=== PATIENT | female | born 1970 ===

== ENCOUNTER 2017-06-20 22:39 | Inpatient (IN) | payer MEDICAID ==
[2017-06-20 23:00] VITALS: BMI 22.8
--- NOTE | 2017-06-20 23:03 | ED PDOC ---
Arrival/HPI - General Time Seen by Provider: 06/20/17 22:45 Historian: Patient - History of Present Illness Narrative History of Present Illness (Text): 06/20/17 23:02 Deena Arredondo is a 46 year old female, whose past medical history includes cerebral aneurysm, who presents to the Emergency department brought in by EMS accompanied by sign complaining of headache. Son reports patient was recently in [facility] neurology ICU following cerebral aneurysmal coiling and discharged. Son states patient had the coil placed following a bleed. Son states tonight patient has been experiencing a frontal headache with some associated weakness and possible right facial droop. Limited HPI and ROS due to patient's acuity of condition. Neurosurgeon: Dr. Park ([facility]) Symptom Onset: Gradual Symptom Course: Unchanged Activities at Onset: Light Context: Home Past Medical History - Provider Review Nursing Documentation Reviewed: Yes - Infectious Disease Hx of Infectious Diseases: None - Tetanus Immunization Tetanus Immunization: Unknown - Psychiatric Hx Depression: No Hx Emotional Abuse: No Hx Physical Abuse: No Hx Substance Use: No - Past Surgical History Past Surgical History: No Previous - Suicidal Assessment Feels Threatened In Home Enviroment: No Family/Social History - Physician Review Nursing Documentation Reviewed: Yes Family/Social History: Unknown Family HX Hx Alcohol Use: No Hx Substance Use: No Hx Substance Use Treatment: No Allergies/Home Meds Allergies/Adverse Reactions: Allergies ampicillin Allergy (Verified 06/20/17 23:08) ANGIOEDEMA shellfish derived Allergy (Verified 06/20/17 23:03) ANAPHYLAXIS Home Medications: Home Meds Medication Instructions Recorded Confirmed Aspirin [Aspirin Chewable] 81 mg PO DAILY 06/20/17 06/20/17 Docusate [Colace] 100 mg PO BID 06/20/17 06/20/17 Ibuprofen [Motrin Ib] 400 mg PO Q4 06/20/17 06/20/17 Nimodipine 30 mg PO Q4 06/20/17 06/20/17 Nitrofurantoin Macrocrystals 100 mg PO Q12 06/20/17 06/20/17 [Macrobid] levETIRAcetam [Keppra] 500 mg PO BID 06/20/17 06/20/17 Review of Systems - Review of Systems Systems not reviewed;Unavailable: Acuity of Condition Constitutional: Other (+weakness). absent: Fevers Musculoskeletal: absent: Back Pain, Neck Pain Neurological: Headache, Facial Droop (+right-sided facial droop), Other (+ weakness) Physical Exam Vital Signs Reviewed: Yes Vital Signs Temp Pulse Resp BP Pulse Ox 06/21/17 02:35 81 15 111/75 99 06/21/17 00:34 81 15 114/65 99 06/20/17 22:53 97.6 F 85 18 111/75 98 Temperature: Afebrile Blood Pressure: Normal Pulse: Regular Respiratory Rate: Normal Appearance: Positive for: Well-Appearing, Non-Toxic, Comfortable Pain Distress: None Mental Status: Positive for: Alert and Oriented X 3 - Systems Exam Head: Present: Atraumatic, Normocephalic Pupils: Present: PERRL Extroacular Muscles: Present: EOMI Conjunctiva: Present: Normal Mouth: Present: Moist Mucous Membranes Neck: Present: Normal Range of Motion Respiratory/Chest: Present: Clear to Auscultation, Good Air Exchange. No: Respiratory Distress, Accessory Muscle Use Cardiovascular: Present: Regular Rate and Rhythm, Normal S1, S2. No: Murmurs Abdomen: Present: Normal Bowel Sounds. No: Tenderness, Distention, Peritoneal Signs Back: Present: Normal Inspection Upper Extremity: Present: Normal Inspection. No: Cyanosis, Edema Lower Extremity: Present: Normal Inspection. No: Edema Neurological: Present: GCS=15, CN II-XII Intact, Speech Normal Skin: Present: Warm, Dry, Normal Color. No: Rashes Psychiatric: Present: Alert, Oriented x 3, Normal Insight, Normal Concentration Medical Decision Making ED Course and Treatment: 06/20/17 23:02 Impression: 46 year old female complaining of headache and weakness tonight. Plan: -- CT Head -- Labs -- Reglan -- Reassess and disposition Progress Notes: 06/21/17 00:06 Reviewed radiology, CT Head shows: Brain: No acute intracranial hemorrhage. Vascular coil at the level of the left internal carotid artery (consistent with patient's history). No significant white matter disease. No edema. Ventricles: No significant ventriculomegaly. Bones: No acute displaced fracture. Sinuses: Unremarkable as visualized. No acute sinusitis. Mastoid air cells: Unremarkable as visualized. No mastoid effusion. IMPRESSION: No acute intracranial hemorrhage, or suspicious mass effect. 06/21/17 01:[address] North, who is aware and agrees with plan. Accepts pt in to hospitalist service. Pt will go to Telemetry observation for TIA. - Lab Interpretations Lab Results: 06/21/17 00:30 06/21/17 00:30 Lab Results 06/21/17 00:30: PT 10.5, INR 0.97, APTT 23.3 L 06/21/17 00:30: Sodium 135, Potassium 4.2, Chloride 97 L, Carbon Dioxide 29, Anion Gap 13, BUN 18, Creatinine 0.9, Est GFR ( Amer) > 60, Est GFR (Non- Af Amer) > 60, Random Glucose 117 H, Calcium 9.0, Total Bilirubin 0.3, AST 23, ALT 48, Alkaline Phosphatase 73, Total Protein 5.8, Albumin 3.4, Globulin 2.4, Albumin/Globulin Ratio 1.4 06/21/17 00:30: WBC 9.1, RBC 2.61 L, Hgb 8.5 L, Hct 25.9 L, MCV 99.2, MCH 32.6, MCHC 32.8, RDW 17.1 H, Plt Count 462 H, MPV 8.2, Gran % 69.4 H, Lymph % (Auto) 20.6 L, [place] % (Auto) 7.3 H, Eos % (Auto) 2.6, Baso % (Auto) 0.1, Gran # 6.32, Lymph # 1.9, [place] # 0.7 H, Eos # 0.2, Baso # 0.01 - RAD Interpretation Radiology Orders: 06/20/17 23:08 HEAD W/O CONTRAST [CT] Stat System Software Programmer: Radiologist - Medication Orders Current Medication Orders: Aspirin (Aspirin Chewable) 81 mg PO DAILY KACEY Cyclobenzaprine HCl (Flexeril) 10 mg PO BID KACEY Docusate Sodium (Colace) 100 mg PO BID [facility] Ibuprofen (Motrin Tab) 400 mg PO Q4 PRN PRN Reason: Headache Last Admin: 06/21/17 05:49 Dose: 400 mg Levetiracetam (Keppra) 500 mg PO BID [facility] Nitrofurantoin Macrocrystals (Macrobid) 100 mg PO Q12 ONE Stop: 06/21/17 10:01 Nimodipine [ Nimodipine] 30 Mg ( Home Med_ 30 mg PO Q4 KACEY Last Admin: 06/21/17 03:50 Dose: Not Given Non-Admin Reason: BP Parameters Not Met Discontinued Medications Metoclopramide HCl (Reglan) 10 mg IVP ONCE ONE Stop: 06/20/17 23:52 Last Admin: 06/21/17 00:42 Dose: 10 mg Oxycodone/Acetaminophen (Percocet 5/325 Mg Tab) 1 tab PO STAT STA Stop: 06/21/17 01:55 Last Admin: 06/21/17 02:14 Dose: 1 tab Re-Assess: JAG Pain Assessment Document 06/21/17 03:14 GC (Rec: 06/21/17 03:51 GC [id number]) Pain Reassessment Is this a pain reassessment? Yes Sleep Is patient sleeping during reassessment? Yes NIHSS Scale ([place]) Time Performed: 23:02 - How Severe is the Stoke Baseline Level of Consciousness: 0=Alert LOC to Questions: 0=Both comments correct LOC to commands: 0=Obeys both correctly Best Gaze: 0=Normal Visual: 0=No visual loss Facial: 0=Normal Motor Arm - Left: 0=No drift Motor Arm - Right: 0=No drift Motor Leg - Left: 0=No drift Motor Leg - Right: 0=No drift Limb Ataxia: 0=Absent Sensory: 0=Normal Best Language: 0=No aphasia Dysarthia: 0=Normal articulation Extinction & Inattention (Neglect): 0=Normal, no object Score: 0 Risk Level: No Stroke Risk rTPA Inclusion/Exclusion - Refusal of Treatment Patient Refused Treatment: No - Inclusion Criteria for Altepase Patient is 18 years or Older: Yes The Clinical Diagnosis of Ischemic Stroke That is Causing a Potentially Disabling Neurological Deficit: No Time of Onset is Well Established to be Less Than 270 Minute Before Treatment Would Begin: No Risk/Benefit Discussed With Patient/Family Member Present: Yes - Exclusion Criteria for Altepase Uncontrolled Hypertension at Time of Treatment (Systolic BP above 185 or Diastolic BP above 110 mmHg): No Less Than 3 Months Had a Recent: Intracranial History of: Brain Aneurysm Active Internal Bleeding: No Known Bleeding Diathesis Including but Not Limited to: Platelets Below 100,000/ mm,PTT Above 40 sec After Heparin Use, Current Use of Oral Anitcoagulant With INR Greater Than 1.7 or PT Greater Than 15 secs: No Evidence of an Intracranial Hemorrhage: No Evidence of Major Acute Infarct With Signs Greater Than 1/3 MCA Territory: No Suspicion of Subarachnoid Hemorrhage on Pretreatment Evaluation Even if CT Head Negative For Hemorrhage: No - Warning to TPA With Conditions Following Conditions Weighed Against Anticipated Benefit: Yes Condition: Increase Risk of Bleed Due to Comorbid Condition - Scribe Statement The provider has reviewed the documentation as recorded by the Scribe Eugenie Walters All medical record entries made by the Scribe were at my direction and personally dictated by me. I have reviewed the chart and agree that the record accurately reflects my personal performance of the history, physical exam, medical decision making, and the department course for this patient. I have also personally directed, reviewed, and agree with the discharge instructions and disposition. Disposition/Present on Arrival - Present on Arrival Any Indicators Present on Arrival: No History of DVT/PE: No History of Uncontrolled Diabetes: No Urinary Catheter: No History Surgical Site Infection Following: None - Disposition Have Diagnosis and Disposition been Completed?: Yes Diagnosis: Transient ischemic attack Disposition: HOSPITALIZED Disposition Time: 01:50 Condition: FAIR
--- NOTE | 2017-06-20 23:46 | CT ---
EXAM: CT Head Without Intravenous Contrast CLINICAL HISTORY: 46 years old, female; Pain; Headache; Prior surgery; Surgery type: Coiled aneurysm repair; Additional info: DAMON TECHNIQUE: Axial computed tomography images of the head/brain without intravenous contrast. All CT scans at this facility use one or more dose reduction techniques, viz.: automated exposure control; ma/kV adjustment per patient size (including targeted exams where dose is matched to indication; i.e. head); or iterative reconstruction technique. COMPARISON: No relevant prior studies available. FINDINGS: Brain: No acute intracranial hemorrhage. Vascular coil at the level of the left internal carotid artery (consistent with patient's history). No significant white matter disease. No edema. Ventricles: No significant ventriculomegaly. Bones: No acute displaced fracture. Sinuses: Unremarkable as visualized. No acute sinusitis. Mastoid air cells: Unremarkable as visualized. No mastoid effusion. IMPRESSION: No acute intracranial hemorrhage, or suspicious mass effect.
[2017-06-21 00:40] LABS: BASO # 0.01 K/mm3 (0.0-2.0); BASO % 0.1 % (0.0-3.0); EOS # 0.2 (0.0-0.7); EOS % 2.6 % (1.5-5.0); GRAN # 6.32 (1.4-6.5); GRAN % 69.4 % (50.0-68.0); HEMATOCRIT 25.9 % (36.0-48.0); LYMPH # 1.9 (1.2-3.4); LYMPH % 20.6 % (22.0-35.0); MEAN CELL VOLUME 99.2 fl (80.0-105.0); MEAN CORPUSCULAR HEMOGLOBIN 32.6 pg (25.0-35.0); MEAN CORPUSCULAR HGB CONC 32.8 g/dl (31.0-37.0); MEAN PLATELET VOLUME 8.2 fl (7.0-11.0); MONO # 0.7 (0.1-0.6); MONO % 7.3 % (1.0-6.0); RED CELL DISTRIBUTION WIDTH 17.1 % (11.5-14.5); WHITE BLOOD COUNT 9.1 10^3/ul (4.5-11.0)
[2017-06-21 00:52] LABS: ALB/GLOB RATIO 1.4 (1.1-1.8); ALKALINE PHOSPHATASE 73 U/L (38-126); ALT/SGPT 48 U/L (7-56); AST/SGOT 23 U/L (14-36); BILIRUBIN,TOTAL 0.3 mg/dL (0.2-1.3); BLOOD UREA NITROGEN 18 mg/dL (7-21); CARBON DIOXIDE 29 mmol/L (21-33); CHLORIDE 97 mmol/L (98-107); GFR AFRICAN-AMERICAN > 60; GLUCOSE,RANDOM 117 mg/dL (70-110); INR 0.97 (0.93-1.08); PARTIAL THROMBOPLASTIN TIME 23.3 Seconds (23.7-30.8); POTASSIUM 4.2 mmol/L (3.6-5.0); SODIUM 135 mmol/L (132-148); TOTAL PROTEIN 5.8 g/dL (5.8-8.3)
[2017-06-21] MEDS ORDERED: Oxycodone/Acetaminophen 5/325 mg Tab PO STA (01:54)
--- NOTE | 2017-06-21 03:13 | CP.PCM.HP ---
<VALERY THRASHER - Last Filed: 06/21/17 03:02> History of Present Illness - History of Present Illness History of Present Illness: Valery Thrasher, PGY1, H&P for Dr. North: CC: right sided facial droop, weakness HPI: 46F with PMH cerebral aneurysm s/p repair, HTN, presents for right sided facial droop and right sided weakness x 2 hrs. It started this afternoon, when pt started complaining of a frontal headache, with associated right sided weakness and right facial droop, noticed as per her son. Resolved 2 hrs later, but wanted to come to ED since pt has a hx of repair of aneurysm. Denies f/c/n/v , anorexia, poor intake. Pt's son states that pt was in ICU at [facility] for 3 weeks for cerebal aneursym repair, with resulting ICU psychosis, which is slowly improving at home, since her discharge this past . In ED, significant lab and imaging include hgb 8.5 (unknown baseline), Ct head neg for acute changes, received reglan and percocet, which helped with her headache. Currently, pt sleepy, denies any weakness, facial droop or headache. PMH: cerebral aneurysm s/p repair- coiled (3 weeks ago at [facility]), HTN, herniated discs, cervical cancer? PSH: cerebral aneurysm repair - 3 weeks ago All: Ampicillin, shellfish FH: Mother, sister and brother (have Lewy body dementia) SH: Denies etoh use. Smokes 1/2 ppd x 25 years, quit few months ago. Denies drug use. Works as a chiropractor assistant. Lives with son, . Son is a speed reading teacher. Present on Admission - Present on Admission Any Indicators Present on Admission: No History of DVT/PE: No History of Uncontrolled Diabetes: No Urinary Catheter: No Decubitus Ulcer Present: No History Surgical Site Infection Following: None Review of Systems - Review of Systems All systems: reviewed and no additional remarkable complaints except Review of Systems: as per hPI Past Patient History - Infectious Disease Hx of Infectious Diseases: None - Tetanus Immunizations Tetanus Immunization: Unknown - Past Social History Smoking Status: Unknown If Ever Smoked - NEUROLOGICAL Other/Comment: Aneurysm with coiling - PSYCHIATRIC Hx Depression: No Hx Emotional Abuse: No Hx Physical Abuse: No Hx Substance Use: No - SURGICAL HISTORY Hx Surgeries: Yes Other/Comment: Coiled Aneurysm - ANESTHESIA Hx Anesthesia: Yes Hx Anesthesia Reactions: No Hx Malignant Hyperthermia: No Meds Allergies/Adverse Reactions: Allergies Allergy/AdvReac Type Severity Reaction Status Date / Time ampicillin Allergy ANGIOEDEMA Verified 06/20/17 23:08 shellfish derived Allergy ANAPHYLAXIS Verified 06/20/17 23:03 Physical Exam - Constitutional Appears: Non-toxic, Older Than Stated Age - Head Exam Head Exam: ATRAUMATIC, NORMOCEPHALIC - Eye Exam Eye Exam: PERRL. absent: Conjunctival injection, Scleral icterus Pupil Exam: PERRL - ENT Exam ENT Exam: Mucous Membranes Moist - Neck Exam Neck exam: Negative for: Lymphadenopathy, Thyromegaly - Respiratory Exam Respiratory Exam: Clear to Auscultation Bilateral. absent: Rales, Rhonchi, Wheezes - Cardiovascular Exam Cardiovascular Exam: RRR, +S1, +S2. absent: Systolic Murmur - GI/Abdominal Exam GI & Abdominal Exam: Normal Bowel Sounds, Soft. absent: Guarding, Tenderness - Extremities Exam Extremities exam: Negative for: calf tenderness, pedal edema - Neurological Exam Neurological exam: CN II-XII Intact, Oriented x3, Reflexes Normal Additional comments: Sensations intact thruout. Motor strength 5/5 UE and LE. - Psychiatric Exam Additional comments: Sleepy - Skin Skin Exam: Dry, Warm Results - Vital Signs Recent Vital Signs: Last Vital Signs Temp 97.6 F 06/20/17 22:53 Pulse 81 06/21/17 02:35 Resp 15 06/21/17 02:35 BP 111/75 06/21/17 02:35 Pulse Ox 99 06/21/17 02:35 - Labs Result Diagrams: 06/21/17 00:30 06/21/17 00:30 Assessment & Plan - Assessment and Plan (Free Text) Assessment: 46F with hx of cerebral aneurysm s/p repair 3 weeks ago, admitted for transient focal weakness and facial droop 2/2 likely TIA, constipation, anemia. Plan: Headache and focal weakness 2/2 likely TIA vs CVA: - Lasted few hours - right sided facial droop, headache, right sided weakness, resolved currently in ED. - Neurology c/s. Neuro checks Q2h - hx of cerebral aneurysm repair at [facility] 3 weeks ago; discharged past , stayed in ICU for 3 weeks, developed IcU psychosis as per son. Constipation: - Pt has had BM since past 3 days, will give Colace 100 mg pO BID. Anemia: - Hgb 8.5. F/u work up of anemia: Fe panel with ferritin, b12, folate, TSH. Hx of HTN: - C/w home med Nimodipine, hold for SBP<110. UTI: - Pt was give macrobid for her uTI at home; she has 1 extra dose remaining to fulfill her treatment. - F/u UA, will give macrobid 1 dose tomorrow AM. Hx of back pain: - c.w home med cyclobenzaprine Discussed with Dr Can Thrasher, PGy1 - Date & Time Date: 06/21/17 Time: 03:13 <Bernadine North - Last Filed: 06/21/17 06:19> Results - Vital Signs Recent Vital Signs: Last Vital Signs Temp 98.0 F 06/21/17 03:23 Pulse 82 06/21/17 03:23 Resp 20 06/21/17 03:23 BP 98/57 L 06/21/17 03:23 Pulse Ox 99 06/21/17 02:35 - Labs Result Diagrams: 06/21/17 00:30 06/21/17 00:30 Attending/Attestation - Attestation I have personally seen and examined this patient.: Yes I have fully participated in the care of the patient.: Yes I have reviewed all pertinent clinical information: Yes Notes (Text): 06/21/17 06:19 Agree with history,physical examination, assessment and plan. Patient was seen when she was in bed # 065-45.
[2017-06-21] MEDS: NIMODIPINE 30 MG PO SCH ×5 (03:50→20:33)
[2017-06-21 07:07] LABS: IRON 77 ug/dL (45-180)
[2017-06-21 12:18] LABS: FOLATE 8.8 ng/mL
--- NOTE | 2017-06-21 16:19 | CP.PCM.CON ---
History of Present Illness - History of Present Illness History of Present Illness: Mrs. Arredondo is a 46-year-old woman who had a ruptured left ICA aneurysm and subsequent subarachnoid hemorrhage 3 weeks ago. She was at a concert when she developed a severe headache and had a seizure. She was taken to [facility] where she had endovascular coiling performed. She then developed delayed vasospasm, which was minimal after subsequent angiogram was done and was started on nimodipine. She presented to the ED with severe headache yesterday and felt that her right side was numb and a little weak. Today, she only complains of subtle numbness of the right side as compared with the right, but no weakness. Her headache is still severe. She is confused and seems to have memory impairment. This was apparently the case for the last 3 weeks since the aneurysm ruptured. She was started on Keppra for seizure prophylaxis. Review of Systems - Review of Systems Systems not reviewed;Unavailable: Altered Mental Status Past Patient History - Infectious Disease Hx of Infectious Diseases: None - Tetanus Immunizations Tetanus Immunization: Unknown - Past Social History Smoking Status: Unknown If Ever Smoked - CARDIAC Hx Cardiac Disorders: Yes Hx Hypertension: Yes - PULMONARY Hx Respiratory Disorders: No - NEUROLOGICAL Other/Comment: Aneurysm with coiling - HEENT Hx HEENT Problems: No - RENAL Hx Chronic Kidney Disease: No - ENDOCRINE/METABOLIC Hx Endocrine Disorders: No - HEMATOLOGICAL/ONCOLOGICAL Hx Blood Disorders: No - INTEGUMENTARY Hx Dermatological Problems: No - MUSCULOSKELETAL/RHEUMATOLOGICAL Hx Musculoskeletal Disorders: No Hx Falls: No - GASTROINTESTINAL Hx Gastrointestinal Disorders: No - GENITOURINARY/GYNECOLOGICAL Hx Genitourinary Disorders: No - PSYCHIATRIC Hx Depression: No Hx Emotional Abuse: No Hx Physical Abuse: No Hx Substance Use: No - SURGICAL HISTORY Hx Surgeries: Yes Other/Comment: Coiled Aneurysm - ANESTHESIA Hx Anesthesia: Yes Hx Anesthesia Reactions: No Hx Malignant Hyperthermia: No Meds Allergies/Adverse Reactions: Allergies Allergy/AdvReac Type Severity Reaction Status Date / Time ampicillin Allergy ANGIOEDEMA Verified 06/20/17 23:08 shellfish derived Allergy ANAPHYLAXIS Verified 06/20/17 23:03 - Medications Medications: Current Medications Aspirin (Aspirin Chewable) [address] [facility] Last Admin: 06/21/17 09:08 Dose: 81 mg Cyclobenzaprine HCl (Flexeril) [address] [facility] Last Admin: 06/21/17 09:08 Dose: 10 mg Docusate Sodium (Colace) [address] [facility] Last Admin: 06/21/17 09:08 Dose: 100 mg Ibuprofen (Motrin Tab) 400 mg PO Q4 PRN PRN Reason: Headache Last Admin: 06/21/17 05:49 Dose: 400 mg Levetiracetam (Keppra) [address] [facility] Last Admin: 06/21/17 09:08 Dose: 500 mg Non-Formulary Medication (Nimodipine [Nimodipine]) [address] [facility] Last Admin: 06/21/17 11:43 Dose: Not Given Physical Exam - Constitutional Appears: Well - Head Exam Head Exam: ATRAUMATIC, NORMAL INSPECTION, NORMOCEPHALIC - Eye Exam Eye Exam: EOMI, Normal appearance, PERRL - ENT Exam ENT Exam: Mucous Membranes Moist, Normal Exam - Neck Exam Neck exam: Positive for: Normal Inspection - Respiratory Exam Respiratory Exam: Clear to Auscultation Bilateral, NORMAL BREATHING PATTERN - Cardiovascular Exam Cardiovascular Exam: REGULAR RHYTHM, +S1, +S2 - GI/Abdominal Exam GI & Abdominal Exam: Normal Bowel Sounds, Soft. absent: Tenderness - Rectal Exam Rectal Exam: Deferred - Extremities Exam Extremities exam: Positive for: normal inspection - Back Exam Back exam: NORMAL INSPECTION - Neurological Exam Neurological exam: Alert, Altered, CN II-XII Intact, Normal Gait - Expanded Neurological Exam Expanded Patient oriented to: person, place, time Cranial nerves: EOM's Intact: Normal, Facial Sensation: Normal Ataxia: No Cerebellar Function: Finger to Nose: Abnormal Right Upper motor neuron: Babinski Sign: Normal Sensory exam: Lower Extremity Light Touch: Abnormal Right, Lower Extremity Temperature: Normal, Upper Extremity Light Touch: Abnormal Right, Upper Extremity Pin Prick: Abnormal Right Neuro motor strength exam: Left Upper Extremity: 4, Right Upper Extremity: 4, Left Lower Extremity: 4, Right Lower Extremity: 4 DTR: Bicep Left: 2+, Bicep Right: 3+, Patellar Left: 2+, Patellar Right: 3+ - Psychiatric Exam Psychiatric exam: Normal Affect, Normal Mood - Skin Skin Exam: Dry, Intact, Normal Color, Warm Results - Vital Signs Recent Vital Signs: Last Vital Signs Temp 98.5 F 06/21/17 11:55 Pulse 90 06/21/17 14:00 Resp 18 06/21/17 11:55 BP 97/55 L 06/21/17 11:55 Pulse Ox 99 06/21/17 06:00 - Labs Result Diagrams: 06/21/17 00:30 06/21/17 00:30 Labs: Laboratory Results - last 24 hr 06/21/17 06/21/17 06/21/17 06:42 06:42 06:42 Iron 77 TIBC 301 % Saturation 26 Ferritin 73.3 Vitamin B12 250 Folate 8.8 TSH 3rd Generation 3.20 - Imaging and Cardiology CT scan - head Status: Image reviewed by me, Report reviewed by me (No overt signs of ischemic change noted. Aneurysm coils in left ICA.) Assessment & Plan (1) Complicated migraine, intractable Assessment and Plan: There may also be associated delayed vasospasm in this patient with the history of subarachnoid hemorrhage. I recommend treating the headache with decadron 10 mg IV once, Depakote 500 mg IV once and magnesium sufate 2 grams IV once. Will obtain MRI of the brain without contrast to evaluate for possible ischemic changes in the setting of vasospasm. PT/OT eval is recommended. Cognitive rehab is recommended. DVT Px, continue nimodipine for total of 21 days since rupture. Status: Acute Priority: High
[2017-06-21] MEDS ORDERED: Magnesium Sulfate 2 GM in Sodium Chloride 0.9% 100 ML IVPB ONE (16:23)
[2017-06-21] MEDS ORDERED: Valproate 500 MG in Sodium Chloride 0.9% 100 ML IVPB ONE (16:24)
[2017-06-21 17:46] LABS: PH,URINE 7.5 (4.7-8.0); URINE BILIRUBIN NEGATIVE (NEGATIVE); URINE BLOOD NEGATIVE (NEGATIVE); URINE GLUCOSE (UA) NEGATIVE (NEGATIVE); URINE KETONE NEGATIVE (NEGATIVE); URINE LEUKOCYTE ESTERASE TRACE Leu/uL (NEGATIVE); URINE PROTEIN NEGATIVE mg/dL (<30 mg/dL); URINE UROBILINOGEN 0.2 E.U./dL (<1 E.U./dL)
[2017-06-21 17:49] LABS: URINE APPEARANCE CLEAR (CLEAR); URINE COLOR YELLOW (YELLOW)
[2017-06-21 17:56] LABS: URINE BACTERIA FEW (NEG); URINE RBC 0 - 2 /hpf (0-2)
[2017-06-22] MEDS: NIMODIPINE 30 MG PO SCH ×5 (00:13→17:18)
[2017-06-22 06:14] LABS: HEMATOCRIT 27.7 % (36.0-48.0); MEAN CELL VOLUME 98.9 fl (80.0-105.0); MEAN CORPUSCULAR HEMOGLOBIN 32.5 pg (25.0-35.0); MEAN CORPUSCULAR HGB CONC 32.9 g/dl (31.0-37.0); MEAN PLATELET VOLUME 8.1 fl (7.0-11.0); RED CELL DISTRIBUTION WIDTH 16.7 % (11.5-14.5); WHITE BLOOD COUNT 5.8 10^3/ul (4.5-11.0)
--- NOTE | 2017-06-22 07:20 | CARD ---
APPROVED REPORT EKG Measurement Heart [id number] OH [id number] <Conclusion> Normal sinus rhythm Normal ECG
--- NOTE | 2017-06-22 09:16 | MRI ---
PROCEDURE: MRI BRAIN WITHOUT CONTRAST HISTORY: rule out ischemic change and vasospasm COMPARISON: Head CT 06/20/2017. TECHNIQUE: Multiplanar, multisequence MR images of the brain were obtained without intravenous contrast enhancement. FINDINGS: HEMORRHAGE: Well-circumscribed dephasing artifact is appreciate the left-sided kashia Parker in the gradient echo series corresponding to dense metallic artifact in this CT exam 06/20/2017 compatible with endovascular therapy for intra aneurysm treatment. No calvarial disruption is appreciated to suggest craniotomy in the past. No definite intracranial hemorrhage appreciated this time. DWI: Multifocal diffusion-weighted abnormalities are scattered bilaterally of the bilateral parietal and frontal lobes, left side greater than right with a possible subacute lacune or infarct at the medial left cerebellum. Left occipital lobe is also affected. There is abnormal low increased short TE signal at the medial right occipital lobe extending cephalad above the level of the straight sinus. Although it abuts the straight sinus is not felt to represent sinus thrombosis in part. Contrast MRI is advised for greater characterization. This is not felt to represent a minimal subdural hematomas and no dephasing is seen in the gradient echo axial series. Diffusion is slightly restricted according to this signal distribution. On further review of the CT exams 06/20/2017, is difficult to exclude trace hemorrhage here. BRAIN PARENCHYMA: No mass effect or edema. Small foci of edema are seen scattered related to the chronic lacune infarctions bilaterally. VENTRICLES: Unremarkable. No hydrocephalus. CRANIUM: Unremarkable. ORBITS: Grossly unremarkable. PARANASAL SINUSES/MASTOIDS: Clear VASCULAR SYSTEM: Skull base flow voids intact. OTHER FINDINGS: None. IMPRESSION: 1. Multifocal acute or subacute lacune infarcts are identified at the bilateral cerebral hemispheres and ina in the medial left cerebellum suggesting probable embolic process from the hard or bilateral carotid artery systems. 2. Trace subdural hematoma is not excluded at the medial left occipital lobe and a thin sliver of abnormal signal identified as discussed above. Trace acute or subacute atypical infarction is the differential diagnosis. 3. Left-sided kashia Parker aneurysm status post endovascular therapy.
[2017-06-22] MEDS: Sodium Chloride 0.9% 1,000 ML IV SCH (11:48)
--- NOTE | 2017-06-22 13:35 | CP.PCM.PN ---
<Ty Singh - Last Filed: 06/22/17 17:01> Subjective - Date & Time of Evaluation Date of Evaluation: 06/22/17 Time of Evaluation: 08:00 - Subjective Subjective: Patient seen and evaluated at bedside. Ty Singh DO PGY1 Internal Medicine Objective - Vital Signs/Intake and Output Vital Signs (last 24 hours): Temp Pulse Resp BP Pulse Ox 97.1 F L 50 L 20 108/70 98 06/22/17 12:00 06/22/17 12:00 06/22/17 12:00 06/22/17 06:00 06/22/17 06:00 - Medications Medications: Current Medications Aspirin (Aspirin Chewable) 81 mg PO DAILY [facility] Last Admin: 06/22/17 09:34 Dose: 81 mg Clopidogrel Bisulfate (Plavix) 75 mg PO DAILY [facility] Last Admin: 06/22/17 11:47 Dose: 75 mg Cyclobenzaprine HCl (Flexeril) 10 mg PO BID [facility] Last Admin: 06/22/17 09:35 Dose: 10 mg Docusate Sodium (Colace) 100 mg PO BID [facility] Last Admin: 06/22/17 09:34 Dose: 100 mg Home Med (Home Med) 1 unit PO Q4 [facility] Last Admin: 06/22/17 09:31 Dose: Not Given Sodium Chloride (Sodium Chloride 0.9%) 1,000 mls @ 100 mls/hr IV .Q10H [facility] Last Admin: 06/22/17 11:48 Dose: 100 mls/hr Ibuprofen (Motrin Tab) 400 mg PO Q4 PRN PRN Reason: Headache Last Admin: 06/21/17 05:49 Dose: 400 mg Levetiracetam (Keppra) 500 mg PO BID [facility] Last Admin: 06/22/17 09:35 Dose: 500 mg - Labs Labs: PT 10.5 Seconds (9.9-11.8) 06/21/17 00:30 INR 0.97 (0.93-1.08) 06/21/17 00:30 APTT 23.3 Seconds (23.7-30.8) L 06/21/17 00:30 - Constitutional Appears: Confused - Head Exam Head Exam: NORMAL INSPECTION, NORMOCEPHALIC - Eye Exam Eye Exam: EOMI, Normal appearance, PERRL - Neck Exam Neck Exam: absent: Lymphadenopathy - Respiratory Exam Respiratory Exam: Clear to Ausculation Bilateral, NORMAL BREATHING PATTERN. absent: Rales, Rhonchi, Wheezes - Cardiovascular Exam Cardiovascular Exam: REGULAR RHYTHM, +S1, +S2. absent: Murmur - GI/Abdominal Exam GI & Abdominal Exam: Normal Bowel Sounds - Extremities Exam Additional comments: lower extremity strength 5/5 biltaerally upper extremity strength 5/5 bilaterally - Neurological Exam Neurological Exam: absent: Oriented x3 Additional comments: Patient did not know the year, day, or where she was. She recalled her name with some help. - Psychiatric Exam Psychiatric exam: Depressed Additional comments: Patient was crying and asking for her son Assessment and Plan - Assessment and Plan (Free Text) Assessment: 46F with PMH cerebral aneurysm s/p repair, HTN, presented for right sided facial droop and right sided weakness x 2 hrs. Currently no droop or weaknes. Patient is teary eyed and appears so be sad. Plan: 1. 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 -PT evaluation ordered 2. Confusion/ AMS : Embolic strok vs cerberal vasospasm vs proceduarl related emboli - MRI Brain performed and obtained - Per Neurology MRI of the brain showed multiple ischemic strokes involving both hemispheres as well as the posterior circulation. - full stroke work-up performed and continuous telemetry - echocardiogram/bubble study ordered - MRA of the head/neck ordered , continuous telemetry, - started on both aspirin and plavix. - psychiatry consulted - NS @100 3. Anemia: - Continue to monitor Hgb, currently 9.1 4. UTI: - MAcrobid treatment completed - continue to monitor 5. Hx of back pain: - c.w home med cyclobenzaprine 6. Constipation -continue colace 7. DVT prophylacxis -SCD <Sara Oconnell - Last Filed: 06/22/17 17:25> Objective - Vital Signs/Intake and Output Vital Signs (last 24 hours): Temp Pulse Resp BP Pulse Ox 97.1 F L 50 L 20 108/70 98 06/22/17 12:00 06/22/17 12:00 06/22/17 12:00 06/22/17 06:00 06/22/17 06:00 - Medications Medications: Current Medications Aspirin (Aspirin Chewable) 81 mg PO DAILY [facility] Last Admin: 06/22/17 09:34 Dose: 81 mg Clopidogrel Bisulfate (Plavix) 75 mg PO DAILY [facility] Last Admin: 06/22/17 11:47 Dose: 75 mg Cyclobenzaprine HCl (Flexeril) 10 mg PO BID [facility] Last Admin: 06/22/17 09:35 Dose: 10 mg Docusate Sodium (Colace) 100 mg PO BID [facility] Last Admin: 06/22/17 09:34 Dose: 100 mg Home Med (Home Med) 1 unit PO Q4 [facility] Last Admin: 06/22/17 14:08 Dose: Not Given Sodium Chloride (Sodium Chloride 0.9%) 1,000 mls @ 100 mls/hr IV .Q10H [facility] Last Admin: 06/22/17 11:48 Dose: 100 mls/hr Ibuprofen (Motrin Tab) 400 mg PO Q4 PRN PRN Reason: Headache Last Admin: 06/21/17 05:49 Dose: 400 mg Levetiracetam (Keppra) 500 mg PO BID [facility] Last Admin: 06/22/17 09:35 Dose: 500 mg - Labs Labs: PT 10.5 Seconds (9.9-11.8) 06/21/17 00:30 INR 0.97 (0.93-1.08) 06/21/17 00:30 APTT 23.3 Seconds (23.7-30.8) L 06/21/17 00:30 Attending/Attestation - Attestation I have personally seen and examined this patient.: Yes I have fully participated in the care of the patient.: Yes I have reviewed all pertinent clinical information, including history, physical exam and plan: Yes Notes (Text): 06/22/17 17:17 46 year old female with past medical history of cerebral aneursym s/p repair who presented with right sided weakness and facial droop; also had altered mental status / delirium since her recent hospitalization as per son. She has completed her treatment for UTI. CT and MRI brain were reviewed. Case was discussed with neurology who recommended aspirin and plavix and further studies with MRA and bubble study / echocardiogram as well as PT evaluation. Her headache has improved. She is still confused with labile mood (tearful/ depressed) on examination. Psychiatry evaluation is requested. Anemia workup was ordered for anemia. Recommended outpatient workup. Sara Oconnell MD Hospitalist.
--- NOTE | 2017-06-22 13:40 | CP.PCM.PN ---
Subjective - Date & Time of Evaluation Date of Evaluation: 06/22/17 Time of Evaluation: 10:00 - Subjective Subjective: Mrs. Arredondo was seen and examined today at bedside. She was found in NAD. Still seemingly confused. There were no acute events overnight. Objective - Vital Signs/Intake and Output Vital Signs (last 24 hours): Temp Pulse Resp BP Pulse Ox 97.1 F L 50 L 20 108/70 98 06/22/17 12:00 06/22/17 12:00 06/22/17 12:00 06/22/17 06:00 06/22/17 06:00 - Medications Medications: Current Medications Aspirin (Aspirin Chewable) 81 mg PO DAILY [facility] Last Admin: 06/22/17 09:34 Dose: 81 mg Clopidogrel Bisulfate (Plavix) 75 mg PO DAILY [facility] Last Admin: 06/22/17 11:47 Dose: 75 mg Cyclobenzaprine HCl (Flexeril) 10 mg PO BID [facility] Last Admin: 06/22/17 09:35 Dose: 10 mg Docusate Sodium (Colace) 100 mg PO BID [facility] Last Admin: 06/22/17 09:34 Dose: 100 mg Home Med (Home Med) 1 unit PO Q4 [facility] Last Admin: 06/22/17 09:31 Dose: Not Given Sodium Chloride (Sodium Chloride 0.9%) 1,000 mls @ 100 mls/hr IV .Q10H [facility] Last Admin: 06/22/17 11:48 Dose: 100 mls/hr Ibuprofen (Motrin Tab) 400 mg PO Q4 PRN PRN Reason: Headache Last Admin: 06/21/17 05:49 Dose: 400 mg Levetiracetam (Keppra) 500 mg PO BID [facility] Last Admin: 06/22/17 09:35 Dose: 500 mg - Labs Labs: PT 10.5 Seconds (9.9-11.8) 06/21/17 00:30 INR 0.97 (0.93-1.08) 06/21/17 00:30 APTT 23.3 Seconds (23.7-30.8) L 06/21/17 00:30 - Neurological Exam Neurological Exam: Altered, Awake, CN II-XII Intact Neuro motor strength exam: Left Upper Extremity: 4, Right Upper Extremity: 4, Left Lower Extremity: 4, Right Lower Extremity: 4 Additional comments: Neurologically unchanged compared with previous examination. Assessment and Plan - Assessment and Plan (Free Text) Assessment: MRI of the brain showed multiple ischemic strokes involving both hemispheres as well as the posterior circulation. The differential includes embolic stroke, cerebral vasospasm, or procedural related emboli (dislodging of plaques during interventional procedure). Previously, the patient was thought to have ICU psychosis and this was presumed to be the cause of her encephalopathy. However , after seeing the multiple ischemic strokes, especially the one involving the left temporal lobe, it is clear that she is encephalopathic due to the vascular lesions and cortical injuries. She will need a full stroke work-up with echocardiogram/bubble study, MRA of the head/neck, continuous telemetry, and should be started on both aspirin and plavix. She is having ongoing strokes, and the previous aneurysm is secured, therefor I am not concerned about the risk of bleeding at this time. We should aim to prevent further ischemic strokes for now. She will require PT/OT and cognitive therapy.
--- NOTE | 2017-06-22 16:18 | MRI ---
PROCEDURE: MR Angiography of the neck without contrast HISTORY: ischemic stroke COMPARISON: None available. TECHNIQUE: 3D [id number] angiography of the neck was performed. Rotating maximum intensity projection images of the cervical carotid and vertebral arteries were generated. The origins of the common carotid arteries were not visualized, which is a limitation inherent to the non-contrast time of flight technique. FINDINGS: RIGHT CAROTID ARTERIES: Common Carotid Artery: Normal. Carotid Bifurcation: Normal. Internal Carotid Artery:Normal. External Carotid Artery (proximal branches): Normal. LEFT CAROTID ARTERIES: Common Carotid Artery: Normal. Carotid Bifurcation: Normal. Internal Carotid Artery:Normal. External Carotid Artery (proximal branches): Normal. VERTEBRAL ARTERIES: Right Vertebral Artery: Normal. Left Vertebral Artery: Normal. OTHER FINDINGS: None. IMPRESSION: Normal MR Angiography of the neck.
--- NOTE | 2017-06-22 16:27 | MRI ---
PROCEDURE: Magnetic Resonance Angiography Brain HISTORY: ischemic stroke COMPARISON: None available. TECHNIQUE: 3D time of flight MR angiography of the intracranial arteries was performed. Rotating maximum intensity projection images were generated. FINDINGS: INTERNAL CEREBRAL ARTERIES: Unremarkable. The skull base, petrous, cavernous and supraclinoid segments are bilaterally widely patient. ANTERIOR CEREBRAL ARTERIES: The bilateral A1 A2 anterior cerebral artery segments are patent but appear somewhat at the lower limits of normal size without definitive segmental narrowing appreciable. MIDDLE CEREBRAL ARTERIES: M1 and M2 segments are symmetric bilaterally but also appear at the lower limits normal size without cysts suspicious narrowing associated segmentally. POSTERIOR CIRCULATION: Basilar Artery: Patent but at the lower limits normal size. Distal Vertebral Arteries: Patent but at the lower limits normal size. Posterior Cerebral Arteries: Patent but small left delete [employer] with origin right [employer] present. Posterior Inferior Cerebellar Arteries: Patent bilateral. ANEURYSM/ VASCULAR MALFORMATIONS: None. OTHER FINDINGS: None. 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 Congenital appearance is favored over spasm. No prior comparison available. .
[2017-06-23] MEDS: Sodium Chloride 0.9% 1,000 ML IV SCH ×3 (01:35→20:01)
[2017-06-23] MEDS: NIMODIPINE 30 MG PO SCH ×6 (01:38→20:40)
[2017-06-23 07:20] LABS: BLOOD UREA NITROGEN 29 mg/dL (7-21); CALCIUM 8.6 mg/dL (8.4-10.5); CARBON DIOXIDE 25 mmol/L (21-33); CHLORIDE 106 mmol/L (98-107); CHOLESTEROL 197 mg/dL (130-200); GFR AFRICAN-AMERICAN > 60; GLUCOSE,RANDOM 98 mg/dL (70-110); POTASSIUM 4.3 mmol/L (3.6-5.0); SODIUM 139 mmol/L (132-148)
[2017-06-23 07:22] LABS: BASO # 0.02 K/mm3 (0.0-2.0); BASO % 0.3 % (0.0-3.0); EOS # 0.2 (0.0-0.7); EOS % 2.3 % (1.5-5.0); GRAN # 3.86 (1.4-6.5); GRAN % 48.4 % (50.0-68.0); HEMATOCRIT 25.7 % (36.0-48.0); LYMPH # 3.2 (1.2-3.4); LYMPH % 40.8 % (22.0-35.0); MEAN CELL VOLUME 101.6 fl (80.0-105.0); MEAN CORPUSCULAR HGB CONC 31.5 g/dl (31.0-37.0); MONO # 0.7 (0.1-0.6); MONO % 8.2 % (1.0-6.0); RED CELL DISTRIBUTION WIDTH 17.8 % (11.5-14.5)
--- NOTE | 2017-06-23 12:31 | CP.PCM.PN ---
<Ty Singh - Last Filed: 06/23/17 20:11> Subjective - Date & Time of Evaluation Date of Evaluation: 06/23/17 Time of Evaluation: 07:20 - Subjective Subjective: Medicine Progress Note for Hospitalist Patient was seen and evaluated bedside, with her son present. Patient stated her headache is less than yesterday. She was also more alert than the previous day and not sobbing. Objective - Vital Signs/Intake and Output Vital Signs (last 24 hours): Temp Pulse Resp BP Pulse Ox 98 F 90 20 98/58 L 100 06/23/17 12:00 06/23/17 12:00 06/23/17 12:00 06/23/17 12:00 06/23/17 06:00 Intake and Output: 06/23/17 06/23/17 06:59 18:59 Intake Total 1440 Output Total 500 Balance 940 - Medications Medications: Current Medications Aspirin (Aspirin Chewable) 81 mg PO DAILY [facility] Last Admin: 06/23/17 09:53 Dose: 81 mg Clopidogrel Bisulfate (Plavix) 75 mg PO DAILY [facility] Last Admin: 06/23/17 09:53 Dose: 75 mg Cyclobenzaprine HCl (Flexeril) 10 mg PO BID [facility] Last Admin: 06/23/17 09:53 Dose: 10 mg Docusate Sodium (Colace) 100 mg PO BID [facility] Last Admin: 06/23/17 09:53 Dose: 100 mg Home Med (Home Med) 1 unit PO Q4 [facility] Last Admin: 06/23/17 08:35 Dose: Not Given Sodium Chloride (Sodium Chloride 0.9%) 1,000 mls @ 100 mls/hr IV .Q10H [facility] Last Admin: 06/23/17 08:24 Dose: 100 mls/hr Ibuprofen (Motrin Tab) 400 mg PO Q4 PRN PRN Reason: Headache Last Admin: 06/22/17 20:03 Dose: 400 mg Levetiracetam (Keppra) 500 mg PO BID [facility] Last Admin: 06/23/17 09:54 Dose: 500 mg - Labs Labs: 06/23/17 05:15 06/23/17 05:15 PT 10.5 Seconds (9.9-11.8) 06/21/17 00:30 INR 0.97 (0.93-1.08) 06/21/17 00:30 APTT 23.3 Seconds (23.7-30.8) L 06/21/17 00:30 - Constitutional Appears: No Acute Distress - Head Exam Head Exam: ATRAUMATIC, NORMAL INSPECTION, NORMOCEPHALIC - Eye Exam Eye Exam: Normal appearance - Respiratory Exam Respiratory Exam: Clear to Ausculation Bilateral, NORMAL BREATHING PATTERN. absent: Rales, Stridor - Cardiovascular Exam Cardiovascular Exam: REGULAR RHYTHM, +S1, +S2. absent: RRR, Rubs, Murmur - GI/Abdominal Exam GI & Abdominal Exam: Normal Bowel Sounds - Extremities Exam Additional comments: Upper and lower extremity strength 5/5 - Neurological Exam Neurological Exam: Alert, Awake, Oriented x3 Assessment and Plan - Assessment and Plan (Free Text) Assessment: 46F with PMH cerebral aneurysm s/p repair, HTN, presented for left sided facial droop and right sided weakness x 2 hrs. Currently the patient does not have left facial droop or right arm weakness. Patient is being worked up for the confusion and AMS. Plan: 1. Headache and focal weakness 2/2 likely TIA vs CVA: - currently resolved - Neurology consulted Neuro checks Q2h - PT evaluation ordered 2. Confusion/ AMS : Embolic stroke vs cerebral vasospasm vs procedural related emboli - MRI Brain performed and obtained - Per Neurology MRI of the brain showed multiple ischemic strokes involving both hemispheres as well as the posterior circulation. 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 - full stroke work-up being done - echocardiography with bubble study did not reveal any shunts. 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 - psychiatry consulted 3. Anemia- macrocytic likely due to B12 deficiency - Hgb is 8.1, iron studies were normal - B12 level is on the lower end of normal - Start B12 - Continue to monitor B12 levels and Hgb 4. HLD - LDL level of 105 - started on Lipitor 10 PO 5. UTI: resolved - Macrobid treatment completed 6. Hx of back pain: - continue home med cyclobenzaprine 7.Constipation - continue Colace 8. DVT prophylaxis -SCD <Sara Oconnell - Last Filed: 06/24/17 06:40> Objective - Vital Signs/Intake and Output Vital Signs (last 24 hours): Temp Pulse Resp BP Pulse Ox 97.7 F 86 20 129/79 98 06/24/17 06:00 06/24/17 06:00 06/24/17 06:00 06/24/17 06:00 06/24/17 06:00 Intake and Output: 06/23/17 06/24/17 18:59 06:59 Intake Total 720 Output Total 1200 Balance -480 - Medications Medications: Current Medications Aspirin (Aspirin Chewable) 81 mg PO DAILY [facility] Last Admin: 06/23/17 09:53 Dose: 81 mg Atorvastatin Calcium (Lipitor) 10 mg PO DIN [facility] Last Admin: 06/23/17 17:18 Dose: 10 mg Clopidogrel Bisulfate (Plavix) 75 mg PO DAILY [facility] Last Admin: 06/23/17 09:53 Dose: 75 mg Cyclobenzaprine HCl (Flexeril) 10 mg PO BID [facility] Last Admin: 06/23/17 17:18 Dose: 10 mg Docusate Sodium (Colace) 100 mg PO BID [facility] Last Admin: 06/23/17 17:18 Dose: 100 mg Home Med (Home Med) 1 unit PO Q4 [facility] Last Admin: 06/24/17 04:30 Dose: Not Given Sodium Chloride (Sodium Chloride 0.9%) 1,000 mls @ 100 mls/hr IV .Q10H [facility] Last Admin: 06/24/17 05:35 Dose: 100 mls/hr Ibuprofen (Motrin Tab) 400 mg PO Q4 PRN PRN Reason: Headache Last Admin: 06/22/17 20:03 Dose: 400 mg Levetiracetam (Keppra) 500 mg PO BID [facility] Last Admin: 06/23/17 17:18 Dose: 500 mg - Labs Labs: 06/23/17 05:15 06/23/17 05:15 PT 10.5 Seconds (9.9-11.8) 06/21/17 00:30 INR 0.97 (0.93-1.08) 06/21/17 00:30 APTT 23.3 Seconds (23.7-30.8) L 06/21/17 00:30 Attending/Attestation - Attestation I have personally seen and examined this patient.: Yes I have fully participated in the care of the patient.: Yes I have reviewed all pertinent clinical information, including history, physical exam and plan: Yes Notes (Text): 06/23/17 46 year old female with past medical history of cerebral aneursym s/p repair who presented with right sided weakness and facial droop; also had altered mental status / delirium since her recent hospitalization as per son. She has recently completed her treatment for UTI. CT and MRI brain were reviewed. Neurology is following the patient. She is on aspirin, plavix and statin. Echocardiogram /bubble study was done today; will follow up with results. PT evaluation was appreciated. Her headache has improved. Her labile mood has improved as well. Her mental status is now at baseline. Psychiatry evaluation was appreciated. Anemia workup was reviewed. Will continue to monitor closely. Son is at bedside and questions were answered. Sara Oconnell MD Hospitalist.
[2017-06-23] MEDS ORDERED: Gadodiamide 287 MG/ML VIAL (15ML) IV ONE (16:34)
--- NOTE | 2017-06-23 18:25 | CON ---
HISTORY OF PRESENT ILLNESS: Shortly, the patient is a 46-year-old female with multiple medical issues including cerebral aneurysm. The patient was admitted for evaluation of headache and the patient was recently discharged from [facility] Neurology ICU following cerebral aneurysm coiling and discharge. The patient was admitted on the second floor to this facility and psych consult was called for evaluation of altered mental status as well as some visual hallucinations. The patient was seen and examined with neurology team, resident was next to the patient bed. The patient presented to be alert. The patient knows that she is in the hospital. The patient knows that the circumstances of her admission to the medical side, but appears to be confused. Collateral information was obtained from the patient's son who is next to the patient. The patient's son is Jean-Paul Sequeira. As per the son, 2 days ago, the patient was experiencing visual hallucinations, presenting the patient was talking to her parents. The patient also lost touch with the reality and had impression that she is still a child, and she has her parents next to her. Last episode was yesterday. Today, the patient is more oriented, alert, and did not have any hallucinations so far. The patient is improving as per son, but still is not at her baseline yet. The patient does not have history of mental illness, does not have history of psychosis, denies history of suicidal attempts, denied previous episodes of visual hallucinations. The patient reported that she feels better. The patient denied feeling depressed, denied thoughts of killing herself or others, denied any hallucinations at present moment. The patient knows that she is in the hospital, but she was not aware of the date. The patient does not have substance abuse history and denied using alcohol or smoking cigarettes. PHYSICAL EXAMINATION VITAL SIGNS: Reviewed. Temperature 98, pulse is 92 to 101, blood pressure 98/58, respirations 20. MEDICATIONS: Reviewed. Aspirin, Lipitor, Plavix, Flexeril, Colace, Motrin, Keppra was started 500 mg twice a day, Seroquel will be given only for agitation or hallucinations at the nighttime. Risk, benefits and alteratives explained to the patient and her son. The patient also is on sodium chloride. 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 The patient also had neck MRI and head MRA. Notes from neurology exam reviewed. MENTAL STATUS EXAMINATION: The patient appears to be alert, oriented to place, self as well but not time. Intermittent eye contact. Speech was under productive. Mood described as "I am not depressed."Affect was constricted. The patient was able to smile couple of times during the interview. Thought process seems to be concrete at the present moment. Thought content: The patient denied any hallucinations at present moment, but has 2 days off visual hallucinations that she s with her parents and lost touch with reality. As per son, the patient is closer to the baseline, but still appears to be confused. The patient denied thoughts of harming herself or others. Denies intention or plan. Insight and judgement are fair. Impulses are well controlled. IMPRESSION: Visual hallucinations as well confusions is just related to the neurologic deficits as well delirium stage. The patient denies feeling depressed. Denied anxiety symptoms as well. The patent has multiple medical issues including multiple ischemic strokes involving both hemispheres and . Considering the fact as per collateral information, the patient improving very fast. At this rate, I will not implement any psychotropic medication at present moment,and we will follow up on this patient in order to make sure that the patient is improving and if needed small dose of Seroquel could be given, 12.5 mg, for severe agitation or visual hallucinations which would interfere with the patient safety. Risks, benefits, and alternatives discussed with the patient but as of now, the patient does not have agitated episodes. The patient most likely needs physical therapy and occupational therapy. Collaterals were obtained from the patient's son. Discussed with the medical team. This designer writer will follow up the patient and advise accordingly. Thank you very much for letting us participate in care of your patient. Should they have any questions, give me a call back. Karon Orourke MD
--- NOTE | 2017-06-23 19:15 | CP.PCM.PN ---
<Fran Galvan - Last Filed: 06/23/17 18:59> Subjective - Date & Time of Evaluation Date of Evaluation: 06/23/17 Time of Evaluation: 09:00 - Subjective Subjective: Neurology progress note for Dr. Galloway service Patient seen and examined at bedside. Through front end specialist, patient reports some residual confusion, intermittent, but generally feels improved. Seen ambulating with PT, without overt difficulty or gross asymmetrical gait dysfxn. As per son at bedside, patient's mentation greatly improved over level at admission, confusion that persists typically presents as disorientation to time and occasional flashbacks to prior times (i.e. prior conversations with parents, who are both decreased now). Patient denies any acute complaints, including focal weakness, headache, vision changes, nausea/emesis, paresthesia, fevers/chills, cough, chest pain, shortness of breath at rest, diarrhea, or dysuria/hematuria. Objective - Vital Signs/Intake and Output Vital Signs (last 24 hours): Temp Pulse Resp BP Pulse Ox 98.2 F 105 H 20 97/59 L 100 06/23/17 18:00 06/23/17 18:00 06/23/17 18:00 06/23/17 18:00 06/23/17 06:00 Intake and Output: 06/23/17 06/23/17 06:59 18:59 Intake Total 1440 720 Output Total 500 1200 Balance 940 -480 - Medications Medications: Current Medications Aspirin (Aspirin Chewable) 81 mg PO DAILY [facility] Last Admin: 06/23/17 09:53 Dose: 81 mg Atorvastatin Calcium (Lipitor) 10 mg PO DIN [facility] Last Admin: 06/23/17 17:18 Dose: 10 mg Clopidogrel Bisulfate (Plavix) 75 mg PO DAILY [facility] Last Admin: 06/23/17 09:53 Dose: 75 mg Cyclobenzaprine HCl (Flexeril) 10 mg PO BID [facility] Last Admin: 06/23/17 17:18 Dose: 10 mg Docusate Sodium (Colace) 100 mg PO BID [facility] Last Admin: 06/23/17 17:18 Dose: 100 mg Home Med (Home Med) 1 unit PO Q4 [facility] Last Admin: 06/23/17 17:19 Dose: Not Given Sodium Chloride (Sodium Chloride 0.9%) 1,000 mls @ 100 mls/hr IV .Q10H [facility] Last Admin: 06/23/17 08:24 Dose: 100 mls/hr Ibuprofen (Motrin Tab) 400 mg PO Q4 PRN PRN Reason: Headache Last Admin: 06/22/17 20:03 Dose: 400 mg Levetiracetam (Keppra) 500 mg PO BID [facility] Last Admin: 06/23/17 17:18 Dose: 500 mg - Labs Labs: 06/23/17 05:15 06/23/17 05:15 PT 10.5 Seconds (9.9-11.8) 06/21/17 00:30 INR 0.97 (0.93-1.08) 06/21/17 00:30 APTT 23.3 Seconds (23.7-30.8) L 06/21/17 00:30 - Constitutional Appears: Well, Non-toxic, No Acute Distress - Head Exam Head Exam: ATRAUMATIC, NORMAL INSPECTION, NORMOCEPHALIC - Eye Exam Eye Exam: EOMI, Normal appearance, PERRL. absent: Conjunctival injection, Scleral icterus Pupil Exam: NORMAL ACCOMODATION, PERRL. absent: Fixed, Irregular, Unequal - Neck Exam Neck Exam: Full ROM, Normal Inspection. absent: Lymphadenopathy, Tenderness, Thyromegaly - Respiratory Exam Respiratory Exam: Clear to Ausculation Bilateral, NORMAL BREATHING PATTERN. absent: Accessory Muscle Use, Chest Wall Tenderness, Decreased Breath Sounds, Rales, Rhonchi, Wheezes - Cardiovascular Exam Cardiovascular Exam: REGULAR RHYTHM, RRR, +S2. absent: Bradycardia, Tachycardia , Irregular Rhythm, JVD, +S4 - GI/Abdominal Exam GI & Abdominal Exam: Soft, Normal Bowel Sounds. absent: Distended, Firm, Rigid , Tenderness, Diminished Bowel Sounds, Hyperactive Bowel Sounds, Hypoactive Bowel Sounds, Pulsatile Mass - Extremities Exam Extremities Exam: Full ROM, Normal Capillary Refill, Normal Inspection. absent : Joint Swelling, Pedal Edema, Tenderness - Neurological Exam Neurological Exam: Alert, Awake, Normal Gait (as seen walking with PT), Oriented x3 (oriented to self, location, time) Neuro motor strength exam: Left Upper Extremity: 4, Right Upper Extremity: 4, Left Lower Extremity: 4, Right Lower Extremity: 4 Additional comments: mild R pronator drift with eyes closed no ataxia no tremors at rest, no intention tremors - Psychiatric Exam Psychiatric exam: Normal Affect, Normal Mood - Skin Skin Exam: Dry, Intact, Normal Color, Warm Assessment and Plan - Assessment and Plan (Free Text) Assessment: This is a 46 yo F with PMH of HTN, herniated discs, and possible cervical cancer with 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 She is now being worked up for possible embolic disease vs procedural-related emboli in the setting of multiple ischemic strokes on MRI. Her reported ICU psychosis is more likely encephalopathy 2/2 multiple ischemic strokes, including the left temporal lobe. Plan: 1) Recommend cardio consult for possible embolic disease from carotids vs cardiac 2/2 PFO 2) Echo with bubble study ordered to rule out PFO and embolisms from cardiac site 3) Hypercoagulability workup ordered, f/u 4) Continue ASA/Plavix/Lipitor for stroke prevention 5) Continue Keppra for seizure ppx 6) Maintain SBP >= 120, avoid hypotensive episodes 7) Encourage patient to lay flat 8) PT/OT and cognitive therapy Patient seen, reviewed, and discussed with attending, Dr. Kerwin Galloway. <Gonzalo Galloway - Last Filed: 06/23/17 21:35> Objective - Vital Signs/Intake and Output Vital Signs (last 24 hours): Temp Pulse Resp BP Pulse Ox 98.2 F 105 H 20 97/59 L 100 06/23/17 18:00 06/23/17 18:00 06/23/17 18:00 06/23/17 18:00 06/23/17 06:00 Intake and Output: 06/23/17 06/24/17 18:59 06:59 Intake Total 720 Output Total 1200 Balance -480 - Medications Medications: Current Medications Aspirin (Aspirin Chewable) 81 mg PO DAILY [facility] Last Admin: 06/23/17 09:53 Dose: 81 mg Atorvastatin Calcium (Lipitor) 10 mg PO DIN [facility] Last Admin: 06/23/17 17:18 Dose: 10 mg Clopidogrel Bisulfate (Plavix) 75 mg PO DAILY [facility] Last Admin: 06/23/17 09:53 Dose: 75 mg Cyclobenzaprine HCl (Flexeril) 10 mg PO BID [facility] Last Admin: 09/05/17 17:18 Dose: 10 mg Docusate Sodium (Colace) 100 mg PO BID [facility] Last Admin: 06/23/17 17:18 Dose: 100 mg Home Med (Home Med) 1 unit PO Q4 [facility] Last Admin: 06/23/17 20:40 Dose: Not Given Sodium Chloride (Sodium Chloride 0.9%) 1,000 mls @ 100 mls/hr IV .Q10H [facility] Last Admin: 06/23/17 20:01 Dose: 100 mls/hr Ibuprofen (Motrin Tab) 400 mg PO Q4 PRN PRN Reason: Headache Last Admin: 06/22/17 20:03 Dose: 400 mg Levetiracetam (Keppra) 500 mg PO BID [facility] Last Admin: 06/23/17 17:18 Dose: 500 mg - Labs Labs: 06/23/17 05:15 06/23/17 05:15 PT 10.5 Seconds (9.9-11.8) 06/21/17 00:30 INR 0.97 (0.93-1.08) 06/21/17 00:30 APTT 23.3 Seconds (23.7-30.8) L 06/21/17 00:30 Attending/Attestation - Attestation I have personally seen and examined this patient.: Yes I have fully participated in the care of the patient.: Yes I have reviewed all pertinent clinical information, including history, physical exam and plan: Yes
--- NOTE | 2017-06-23 19:50 | CARD ---
APPROVED REPORT EXAM: Two-dimensional and M-mode echocardiogram with Doppler and color Doppler. INDICATION ASD/VSD/BUBBLE STUDY 2D DIMENSIONS Left Atrium (2D)3.4 (1.6-4.0cm)IVSd0.7 (0.7-1.1cm) LVDd4.5 (3.9-5.9cm)PWd0.8 (0.7-1.1cm) LVDs3.3 (2.5-4.0cm)FS (%) 28.0 % LVEF (%)54.4 (>50%) M-Mode DIMENSIONS Aortic Root2.60 (2.2-3.7cm)Aortic Cusp Exc.1.50 (1.5-2.0cm) Aortic Valve AoV Peak Qzjdkmmx636.0cm/Ihsan Peak GR.8mmHg Mitral Valve MV E Mbrebbzk57.3cm/sMV A Dxshqncs80.5cm/sE/A ratio1.3 TDI Lateral E' Peak V17.40cm/sMedial E' Peak V10.70cm/sE/Lateral E'5.2 E/Medial E'8.5 Pulmonary Valve PV Peak Yptlnlat25.4cm/sPV Peak Grad.3mmHg Tricuspid Valve TR Peak Tmrqofeb144xk/sRAP [id number] Peak Gr.32mmHg [id number] LEFT VENTRICLE The left ventricle is normal size. There is normal left ventricular wall thickness. The left ventricular function is normal. The left ventricular ejection fraction is within the normal range. There is normal LV segmental wall motion. The left ventricular diastolic function is normal. RIGHT VENTRICLE The right ventricle is normal size. There is normal right ventricular wall thickness. The right ventricular systolic function is normal. ATRIA The left atrium size is normal. The right atrium size is normal. AORTIC VALVE The aortic valve is normal in structure. No aortic regurgitation is present. There is no aortic valvular stenosis. MITRAL VALVE The mitral valve is normal in structure. Mitral regurgitation is mild. TRICUSPID VALVE There is mild tricuspid regurgitation. There is mild pulmonary hypertension. GREAT VESSELS The aortic root is normal in size. The IVC is normal in size and collapses >50% with inspiration. <Conclusion> The left ventricle is normal size. There is normal left ventricular wall thickness. The left ventricular function is normal. The left ventricular ejection fraction is within the normal range. There is normal LV segmental wall motion. The left ventricular diastolic function is normal. Mitral regurgitation is mild. There is mild tricuspid regurgitation. There is mild pulmonary hypertension. No shunt is noted during Bubble study
[2017-06-24] MEDS: NIMODIPINE 30 MG PO SCH ×6 (00:30→21:20)
[2017-06-24] MEDS: Sodium Chloride 0.9% 1,000 ML IV SCH ×2 (05:35→15:30)
[2017-06-24 09:54] LABS: BASO # 0.02 K/mm3 (0.0-2.0); BASO % 0.3 % (0.0-3.0); EOS # 0.2 (0.0-0.7); GRAN # 3.88 (1.4-6.5); GRAN % 57.6 % (50.0-68.0); HEMATOCRIT 26.6 % (36.0-48.0); LYMPH # 2.1 (1.2-3.4); LYMPH % 31.8 % (22.0-35.0); MEAN CELL VOLUME 100.4 fl (80.0-105.0); MEAN CORPUSCULAR HEMOGLOBIN 32.8 pg (25.0-35.0); MEAN CORPUSCULAR HGB CONC 32.7 g/dl (31.0-37.0); MEAN PLATELET VOLUME 7.7 fl (7.0-11.0); MONO # 0.5 (0.1-0.6); MONO % 7.3 % (1.0-6.0); RED CELL DISTRIBUTION WIDTH 16.7 % (11.5-14.5); WHITE BLOOD COUNT 6.7 10^3/ul (4.5-11.0)
[2017-06-24 10:14] LABS: ALB/GLOB RATIO 1.4 (1.1-1.8); ALKALINE PHOSPHATASE 64 U/L (38-126); ALT/SGPT 36 U/L (7-56); AST/SGOT 29 U/L (14-36); BILIRUBIN,TOTAL 0.2 mg/dL (0.2-1.3); BLOOD UREA NITROGEN 17 mg/dL (7-21); CALCIUM 9.1 mg/dL (8.4-10.5); CARBON DIOXIDE 26 mmol/L (21-33); CHLORIDE 103 mmol/L (98-107); GFR AFRICAN-AMERICAN > 60; GLUCOSE,RANDOM 110 mg/dL (70-110); POTASSIUM 4.3 mmol/L (3.6-5.0); SODIUM 138 mmol/L (132-148); TOTAL PROTEIN 6.1 g/dL (5.8-8.3)
[2017-06-24 11:23] LABS: INR 0.97 (0.93-1.08); PARTIAL THROMBOPLASTIN TIME 22.3 Seconds (23.7-30.8)
--- NOTE | 2017-06-24 13:52 | CP.PCM.PN ---
<Fran Galvan - Last Filed: 06/24/17 13:49> Subjective - Date & Time of Evaluation Date of Evaluation: 06/24/17 Time of Evaluation: 10:10 - Subjective Subjective: Neurology progress note for Dr. Galloway service Patient seen and examined at bedside. Through milieu manager, patient reports continuing improvement; no overt confusion evident at time of exam. Still denies any acute complaints, including focal weakness, headache, vision changes, nausea/emesis, paresthesia, fevers/chills, cough, chest pain, shortness of breath at rest, diarrhea, or dysuria/hematuria. Objective - Vital Signs/Intake and Output Vital Signs (last 24 hours): Temp Pulse Resp BP Pulse Ox 98.5 F 104 H 20 107/63 98 06/24/17 11:50 06/24/17 11:50 06/24/17 11:50 06/24/17 11:50 06/24/17 06:00 - Medications Medications: Current Medications Aspirin (Aspirin Chewable) 81 mg PO DAILY [facility] Last Admin: 06/24/17 09:33 Dose: 81 mg Atorvastatin Calcium (Lipitor) 10 mg PO DIN [facility] Last Admin: 06/23/17 17:18 Dose: 10 mg Clopidogrel Bisulfate (Plavix) 75 mg PO DAILY [facility] Last Admin: 06/24/17 09:32 Dose: 75 mg Cyclobenzaprine HCl (Flexeril) 10 mg PO BID [facility] Last Admin: 06/24/17 09:33 Dose: 10 mg Docusate Sodium (Colace) 100 mg PO BID [facility] Last Admin: 06/24/17 09:32 Dose: 100 mg Home Med (Home Med) 1 unit PO Q4 [facility] Last Admin: 06/24/17 12:13 Dose: Not Given Sodium Chloride (Sodium Chloride 0.9%) 1,000 mls @ 100 mls/hr IV .Q10H [facility] Last Admin: 06/24/17 05:35 Dose: 100 mls/hr Ibuprofen (Motrin Tab) 400 mg PO Q4 PRN PRN Reason: Headache Last Admin: 06/24/17 09:32 Dose: 400 mg Levetiracetam (Keppra) 500 mg PO BID [facility] Last Admin: 06/24/17 09:32 Dose: 500 mg - Labs Labs: 06/24/17 09:35 06/24/17 09:35 PT 10.5 Seconds (9.9-11.8) 06/24/17 11:00 INR 0.97 (0.93-1.08) 06/24/17 11:00 APTT 22.3 Seconds (23.7-30.8) L 06/24/17 11:00 - Additional Findings Additional findings: - Constitutional Appears: Well, Non-toxic, No Acute Distress - Head Exam Head Exam: ATRAUMATIC, NORMAL INSPECTION, NORMOCEPHALIC - Eye Exam Eye Exam: EOMI, Normal appearance. absent: Conjunctival injection, Scleral icterus Pupil Exam: absent: Irregular, Unequal - Neck Exam Neck Exam: Full ROM, Normal Inspection - Respiratory Exam Respiratory Exam: Clear to Ausculation Bilateral, NORMAL BREATHING PATTERN. absent: Accessory Muscle Use, Chest Wall Tenderness, Decreased Breath Sounds, Rales, Rhonchi, Wheezes - Cardiovascular Exam Cardiovascular Exam: REGULAR RHYTHM, RRR, +S2. absent: Bradycardia, Tachycardia , Irregular Rhythm, JVD, +S4 - GI/Abdominal Exam GI & Abdominal Exam: Soft, Normal Bowel Sounds. absent: Distended, Firm, Rigid , Tenderness, Diminished Bowel Sounds, Hyperactive Bowel Sounds, Hypoactive Bowel Sounds, Pulsatile Mass - Extremities Exam Extremities Exam: Full ROM, Normal Capillary Refill, Normal Inspection. absent : Joint Swelling, Pedal Edema, Tenderness - Neurological Exam Neurological Exam: Alert, Awake, moving all extremities spontaneously, following all commands appropriately Neuro motor strength exam: Left Upper Extremity: 4, Right Upper Extremity: 4, Left Lower Extremity: 4, Right Lower Extremity: 4 No pronator drift today, no ataxia, no tremors at rest, no intention tremors - Psychiatric Exam Psychiatric exam: Normal Affect, Normal Mood - Skin Skin Exam: Dry, Intact, Normal Color, Warm Assessment and Plan - Assessment and Plan (Free Text) Assessment: This is a 46 yo F with PMH of HTN, herniated discs, and possible cervical cancer with recent hx of ruptured L-ICA aneurysm and subsequent subarachnoid hemorrhage s/p coiling 3 weeks prior (At [facility]) who [place] [facility] [place] of right sided facial droop and right sided weakness x 2 hrs. She is now being worked up for possible embolic disease vs procedural-related emboli in the setting of multiple ischemic strokes on MRI. Her reported ICU psychosis is more likely encephalopathy 2/2 multiple ischemic strokes, including the left temporal lobe. Bubble study echo was negative for PFO. Due to her embolic disease, Cardiology is consulted for recommendations regarding anticoagulation, and Heme-onc has been consulted for hypercoagulable workup. Plan: 1) Continue ASA 81mg and Lipitor PO daily for stroke prevention 2) Would recommend Coumadin for AC, will defer to Cardiology to determine which AC to use; will d/c Plavix once anticoagulation choice made 3) B12 lvl low, B12 injection x1 ordered 4) Continue Keppra for seizure ppx, but will likely d/c prior to discharge 5) PT/OT, will need some degree of rehab after discharge 6) Cognitive therapy 7) Heme-onc consulted for hypercoagulability workup, appreciate their recs Patient seen, reviewed, and discussed with attending, Dr. Kerwin Galloway. <Gonzalo Galloway - Last Filed: 06/24/17 14:55> Objective - Vital Signs/Intake and Output Vital Signs (last 24 hours): Temp Pulse Resp BP Pulse Ox 98.5 F 104 H 20 107/63 98 06/24/17 11:50 06/24/17 11:50 06/24/17 11:50 06/24/17 11:50 06/24/17 06:00 - Medications Medications: Current Medications Aspirin (Aspirin Chewable) 81 mg PO DAILY [facility] Last Admin: 06/24/17 09:33 Dose: 81 mg Atorvastatin Calcium (Lipitor) 10 mg PO DIN [facility] Last Admin: 06/23/17 17:18 Dose: 10 mg Clopidogrel Bisulfate (Plavix) 75 mg PO DAILY [facility] Last Admin: 06/24/17 09:32 Dose: 75 mg Cyclobenzaprine HCl (Flexeril) 10 mg PO BID [facility] Last Admin: 06/24/17 09:33 Dose: 10 mg Docusate Sodium (Colace) 100 mg PO BID [facility] Last Admin: 06/24/17 09:32 Dose: 100 mg Home Med (Home Med) 1 unit PO Q4 [facility] Last Admin: 06/24/17 12:13 Dose: Not Given Sodium Chloride (Sodium Chloride 0.9%) 1,000 mls @ 100 mls/hr IV .Q10H [facility] Last Admin: 06/24/17 05:35 Dose: 100 mls/hr Ibuprofen (Motrin Tab) 400 mg PO Q4 PRN PRN Reason: Headache Last Admin: 06/24/17 09:32 Dose: 400 mg Levetiracetam (Keppra) 500 mg PO BID [facility] Last Admin: 06/24/17 09:32 Dose: 500 mg - Labs Labs: 06/24/17 09:35 06/24/17 09:35 PT 10.5 Seconds (9.9-11.8) 06/24/17 11:00 INR 0.97 (0.93-1.08) 06/24/17 11:00 APTT 22.3 Seconds (23.7-30.8) L 06/24/17 11:00 Attending/Attestation - Attestation I have personally seen and examined this patient.: Yes I have fully participated in the care of the patient.: Yes I have reviewed all pertinent clinical information, including history, physical exam and plan: Yes
--- NOTE | 2017-06-24 19:44 | CP.PCM.CON ---
History of Present Illness - History of Present Illness History of Present Illness: 46 year old female with a history of HTN, ruptured left ICA aneurysm with subarachnoid hemorrhage s/p coiling 3 weeks ago, ischemic cva, and anemia. I have been consulted to evaluate for hypercoagulable work up. The patient is unaware of having abnormal bleeding, bruising, and clotting in the past. She is currently receiving antiplatelet therapy and coumadin. Past medical history: HTN, left ICA aneurysm, subarachnoid hemorrhage Past surgical history: None Family history: Denies hematologic and oncologic problems Social history: Former tobacco, denies alcohol, and illicit drug use. Allergies: Ampicillin Review of systems: All remaining review of systems including HEENT, cardiovascular, respiratory, gastrointestinal, genitourinary, musculoskeletal, dermatologic, neurologic, and psychiatric are negative unless mentioned in the HPI. Past Patient History - Infectious Disease Hx of Infectious Diseases: None - Tetanus Immunizations Tetanus Immunization: Unknown - Past Social History Smoking Status: Unknown If Ever Smoked - CARDIAC Hx Cardiac Disorders: Yes Hx Hypertension: Yes - PULMONARY Hx Respiratory Disorders: No - NEUROLOGICAL Other/Comment: Aneurysm with coiling - HEENT Hx HEENT Problems: No - RENAL Hx Chronic Kidney Disease: No - ENDOCRINE/METABOLIC Hx Endocrine Disorders: No - HEMATOLOGICAL/ONCOLOGICAL Hx Blood Disorders: No - INTEGUMENTARY Hx Dermatological Problems: No - MUSCULOSKELETAL/RHEUMATOLOGICAL Hx Musculoskeletal Disorders: No Hx Falls: No - GASTROINTESTINAL Hx Gastrointestinal Disorders: No - GENITOURINARY/GYNECOLOGICAL Hx Genitourinary Disorders: No - PSYCHIATRIC Hx Depression: No Hx Emotional Abuse: No Hx Physical Abuse: No Hx Substance Use: No - SURGICAL HISTORY Hx Surgeries: Yes Other/Comment: Coiled Aneurysm - ANESTHESIA Hx Anesthesia: Yes Hx Anesthesia Reactions: No Hx Malignant Hyperthermia: No Meds Allergies/Adverse Reactions: Allergies Allergy/AdvReac Type Severity Reaction Status Date / Time ampicillin Allergy ANGIOEDEMA Verified 06/20/17 23:08 shellfish derived Allergy ANAPHYLAXIS Verified 06/20/17 23:03 - Medications Medications: Current Medications Aspirin (Aspirin Chewable) 81 mg PO DAILY [facility] Last Admin: 06/24/17 09:33 Dose: 81 mg Atorvastatin Calcium (Lipitor) 10 mg PO DIN [facility] Last Admin: 06/24/17 17:28 Dose: 10 mg Cyclobenzaprine HCl (Flexeril) 10 mg PO BID [facility] Last Admin: 06/24/17 17:28 Dose: 10 mg Docusate Sodium (Colace) 100 mg PO BID [facility] Last Admin: 06/24/17 17:28 Dose: 100 mg Home Med (Home Med) 1 unit PO Q4 [facility] Last Admin: 06/24/17 17:29 Dose: Not Given Sodium Chloride (Sodium Chloride 0.9%) 1,000 mls @ 100 mls/hr IV .Q10H [facility] Last Admin: 06/24/17 15:30 Dose: 100 mls/hr Ibuprofen (Motrin Tab) 400 mg PO Q4 PRN PRN Reason: Headache Last Admin: 06/24/17 09:32 Dose: 400 mg Levetiracetam (Keppra) 500 mg PO BID [facility] Last Admin: 06/24/17 17:28 Dose: 500 mg Warfarin Sodium (Coumadin) 5 mg PO 1800 [facility] PRN Reason: Protocol Last Admin: 06/24/17 17:28 Dose: 5 mg Physical Exam - Head Exam Head Exam: ATRAUMATIC - Eye Exam Eye Exam: Normal appearance - ENT Exam ENT Exam: Mucous Membranes Dry - Respiratory Exam Respiratory Exam: NORMAL BREATHING PATTERN - Cardiovascular Exam Cardiovascular Exam: +S1, +S2 - GI/Abdominal Exam GI & Abdominal Exam: Normal Bowel Sounds - Extremities Exam Extremities exam: Positive for: normal inspection Results - Vital Signs Recent Vital Signs: Last Vital Signs Temp 99.9 F H 06/24/17 17:59 Pulse 98 H 06/24/17 17:59 Resp 20 06/24/17 17:59 BP 99/65 L 06/24/17 17:59 Pulse Ox 98 06/24/17 06:00 - Labs Result Diagrams: 06/24/17 09:35 06/24/17 09:35 Labs: Laboratory Results - last 24 hr 06/24/17 06/24/17 06/24/17 09:35 09:35 11:00 WBC 6.7 RBC 2.65 L Hgb 8.7 L Hct 26.6 L MCV 100.4 MCH 32.8 MCHC 32.7 RDW 16.7 H Plt Count 421 MPV 7.7 Gran % 57.6 Lymph % (Auto) 31.8 [place] % (Auto) 7.3 H Eos % (Auto) 3.0 Baso % (Auto) 0.3 Gran # 3.88 Lymph # 2.1 [place] # 0.5 Eos # 0.2 Baso # 0.02 PT 10.5 INR 0.97 APTT 22.3 L Sodium 138 Potassium 4.3 Chloride 103 Carbon Dioxide 26 Anion Gap 13 BUN 17 Creatinine 0.6 Est GFR ( Amer) > 60 Est GFR (Non-Af Amer) > 60 Random Glucose 110 Calcium 9.1 Total Bilirubin 0.2 AST 29 ALT 36 Alkaline Phosphatase 64 Total Protein 6.1 Albumin 3.6 Globulin 2.5 Albumin/Globulin Ratio 1.4 Assessment & Plan (1) CVA (cerebral vascular accident) Assessment and Plan: will rule out inherited thrombophilia w/u ordered antiplatelet and anticoagulation per neurology/cardiology Status: Acute (2) Anemia Assessment and Plan: will check ferritin, retic count, b12, folate, FOBT to further characterize Thank you for this interesting consult. Status: Acute
--- NOTE | 2017-06-24 21:24 | PN ---
SUBJECTIVE: The patient was followed up today. There were no acute events. The patient denied any hallucinations, denied any mood symptoms. The patient is improving. This freelance writer initiated Seroquel yesterday as-needed for hallucinations at the nighttime, and the patient did not require any Seroquel. PHYSICAL EXAMINATION: VITAL SIGNS: Reviewed. Temperature 98.5, pulse is 105, blood pressure 107/63, and respirations 20. MEDICATIONS: Reviewed. Aspirin, Lipitor, Flexeril, Colace, Motrin, Keppra, and Coumadin. MENTAL STATUS EXAMINATION: The patient was alert and oriented, pleasant and cooperative. Intermittent eye contact. Speech was minimal, underproductive. Mood described as okay. Affect was constricted, but reactive and mood congruent. Thought process seems to be goal-directed thought content. The patient denied visual, auditory, or tactile hallucinations, denied paranoid ideation. The patient does not presume to be psychotic. Insight and judgement improving. Impulses are well controlled. IMPRESSION: Most likely hallucinations are related to the medical issues of delirium, which is improving. The patient had multiple ischemic stroke involving both hemispheres. PLAN: Physical therapy and occupational therapy. This freelance writer think that the patient is improving very much. This freelance writer will sign off. Should they have any questions, give me a call back. The patient was followed by neurology team. Thank you very much for letting us participate in care of your patient. Karon Orourke MD
[2017-06-25] MEDS: Sodium Chloride 0.9% 1,000 ML IV SCH ×3 (00:42→12:17)
[2017-06-25] MEDS: NIMODIPINE 30 MG PO SCH ×6 (00:42→20:09)
--- NOTE | 2017-06-25 02:09 | CON ---
CARDIOLOGY CONSULT REASON FOR CONSULTATION: Decision for patient's anticoagulation as well as any cardiac reason. 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 According to the son, the patient experience ICU psychosis at [facility] and one episode of ICU psychosis after discharge home. The patient since discharge has been delirious and she was brought in by son because he noticed some facial drooping and arm weakness. Her son appears to be very knowledgeable and efficient paste up artist apprentice of his mom. He has her discharge medications listed on his cell phone which included aspirin as only antiplatelet agent. The patient's brain MRI revealed multifocal acute or subacute lacunar infarcts at the bilateral cerebral hemispheres and ina and medial left cerebellum suggestive of lymphatic process from the heart of bilateral carotid artery systems and trace subdural hematoma is not excluded at the medial left occipital lobe, left-sided [place] aneurysm status post endovascular therapy. MEDICATIONS: Aspirin 81 mg once a day, Flexeril 10 mg twice a day, Keppra 500 mg twice a day, Lipitor 10 mg once a day, once a day, normal saline 100 mL an hour. REVIEW OF SYSTEMS: The patient did not document seizure activity on his form and he is unaware of any prior cardiac history. PHYSICAL EXAMINATION GENERAL: The patient is a middle-aged female who does not appear to be in any distress. VITAL SIGNS: Blood pressure 107/63, heart rate 104, temperature 98.5, respirations 20. HEENT: Pale conjunctiva. CHEST: Clear. HEART: S1 and S2 regular. EXTREMITIES: No edema. LABORATORY DATA: Hemoglobin and hematocrit 8.7 and 26.6. White count and platelet count are within normal limits. Urine drug screen is negative. SMA-7 is within normal limits. PTT 22.3, INR is within normal limits. EKG revealed sinus rhythm at the rate of 83. Echocardiography study was without contrast revealed normal left ventricular wall thickness and ejection fraction as well as wall motion, mild mitral insufficiency, mild pulmonary hypertension, no shunt is noted during the bubble study. ASSESSMENT: Multiple embolic strokes, unlikely from cardiac origin because of the diminutive nature of the stroke. They are most likely from the [place] related to the patient's recent interventional procedure a few weeks ago. RECOMMENDATIONS: There is no cardiac indication for anticoagulation; however, from the neurological point, the patient will need to be anticoagulated based on the neurologist's recommendations, especially in the recent history of what appears to be intracranial bleed according to history obtained from the patient's son and the finding of residue of some subdural bleed on the recent MRI. Case was discussed with Dr. Oconnell. Lamin Gutierrez MD
[2017-06-25 06:27] LABS: RETIC% 3.13 % (0.5-1.5)
[2017-06-25 06:32] LABS: INR 0.99 (0.93-1.08)
--- NOTE | 2017-06-25 08:00 | CP.PCM.PN ---
<Ty Singh - Last Filed: 06/25/17 12:54> Subjective - Date & Time of Evaluation Date of Evaluation: 06/24/17 Time of Evaluation: 07:00 - Subjective Subjective: Internal Medicine Progress Note for 06/24/17 Patient was seen and examined bedside. No acute events overnight. Patient states she still has a headache but severity has decreased from yesterday. She also states she feels better. No other complaints. Objective - Vital Signs/Intake and Output Vital Signs (last 24 hours): Temp Pulse Resp BP Pulse Ox 97.8 F 81 20 132/83 99 06/25/17 06:00 06/25/17 06:00 06/25/17 06:00 06/25/17 06:00 06/25/17 06:00 Intake and Output: 06/25/17 06/25/17 06:59 18:59 Intake Total 1660 Output Total 700 Balance 960 - Medications Medications: Current Medications Aspirin (Aspirin Chewable) [address] [facility] Last Admin: 06/24/17 09:33 Dose: 81 mg Atorvastatin Calcium (Lipitor) [address] [facility] Last Admin: 06/24/17 17:28 Dose: 10 mg Cyclobenzaprine HCl (Flexeril) [address] [facility] Last Admin: 06/24/17 17:28 Dose: 10 mg Docusate Sodium (Colace) [address] [facility] Last Admin: 06/24/17 17:28 Dose: 100 mg Home Med (Home Med) [address] [facility] Last Admin: 06/25/17 04:00 Dose: Not Given Sodium Chloride (Sodium Chloride 0.9%) 1,000 mls @ 100 mls/hr IV .Q10H [facility] Last Admin: 06/25/17 01:53 Dose: 100 mls/hr Ibuprofen (Motrin Tab) 400 mg PO Q4 PRN PRN Reason: Headache Last Admin: 06/24/17 09:32 Dose: 400 mg Levetiracetam (Keppra) [address] [facility] Last Admin: 06/24/17 17:28 Dose: 500 mg Warfarin Sodium (Coumadin) [address] [facility] PRN Reason: Protocol Last Admin: 06/24/17 17:28 Dose: 5 mg - Labs Labs: 06/24/17 09:35 06/24/17 09:35 PT 10.7 Seconds (9.9-11.8) 06/25/17 05:45 INR 0.99 (0.93-1.08) 06/25/17 05:45 APTT 22.3 Seconds (23.7-30.8) L 06/24/17 11:00 - Constitutional Appears: No Acute Distress - Head Exam Head Exam: ATRAUMATIC, NORMAL INSPECTION, NORMOCEPHALIC - Eye Exam Eye Exam: Normal appearance - Respiratory Exam Respiratory Exam: Clear to Ausculation Bilateral, NORMAL BREATHING PATTERN - Cardiovascular Exam Cardiovascular Exam: REGULAR RHYTHM, +S1, +S2 - GI/Abdominal Exam GI & Abdominal Exam: Normal Bowel Sounds. absent: Guarding - Extremities Exam Additional comments: Strength 5/5 upper and lower extremeties - Neurological Exam Neurological Exam: Alert, Awake, Oriented x3 - Psychiatric Exam Psychiatric exam: Normal Mood Assessment and Plan - Assessment and Plan (Free Text) Assessment: 46F with PMH cerebral aneurysm s/p repair, HTN, presented for left sided facial droop and right sided weakness x 2 hrs. Currently the patient does not have left facial droop or right arm weakness. Patient is being worked up for the confusion and AMS. Plan: Plan: 1. Headache and focal weakness 2/2 likely TIA vs CVA: - currently resolved - Neurology consulted Neuro checks Q2h 2. Confusion/ AMS : Embolic stroke vs cerebral vasospasm vs procedural related emboli - MRI Brain performed and obtained - Per Neurology MRI of the brain showed multiple ischemic strokes involving both hemispheres as well as the posterior circulation. - hx of cerebral aneurysm repair at [facility] 3 weeks ago; discharged past , stayed in ICU for 3 weeks, developed ICU psychosis as per son. - full stroke work-up being done - echocardiography with bubble study did not reveal any shunts. 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 Anemia- macrocytic likely due to B12 deficiency - Hgb is 8.7, iron studies were normal - B12 level is on the lower end of normal - Start b12 - Continue to monitor Hgb 4. HLD - LDL level of 105 - continue Lipitor 10 PO 5. UTI: resolved - Macrobid treatment completed 6. Hx of back pain: - continue home med cyclobenzaprine 7. Constipation - continue Colace 8. DVT prophylaxis -SCD <Sara Oconnell - Last Filed: 06/25/17 13:37> Objective - Vital Signs/Intake and Output Vital Signs (last 24 hours): Temp Pulse Resp BP Pulse Ox 97.7 F 97 H 20 115/66 99 06/25/17 12:00 06/25/17 12:00 06/25/17 12:00 06/25/17 12:00 06/25/17 06:00 Intake and Output: 06/25/17 06/25/17 06:59 18:59 Intake Total 1660 Output Total 700 Balance 960 - Medications Medications: Current Medications Aspirin (Aspirin Chewable) [address] [facility] Last Admin: 06/25/17 10:23 Dose: 81 mg Atorvastatin Calcium (Lipitor) [address] [facility] Last Admin: 06/24/17 17:28 Dose: 10 mg Cyclobenzaprine HCl (Flexeril) [address] [facility] Last Admin: 06/25/17 10:23 Dose: 10 mg Docusate Sodium (Colace) [address] [facility] Last Admin: 06/25/17 10:21 Dose: 100 mg Enoxaparin Sodium (Lovenox) [address] [facility] PRN Reason: Protocol Home Med (Home Med) [address] [facility] Last Admin: 06/25/17 12:16 Dose: Not Given Sodium Chloride (Sodium Chloride 0.9%) 1,000 mls @ 100 mls/hr IV .Q10H [facility] Last Admin: 06/25/17 12:17 Dose: 100 mls/hr Ibuprofen (Motrin Tab) 400 mg PO Q4 PRN PRN Reason: Headache Last Admin: 06/24/17 09:32 Dose: 400 mg Warfarin Sodium (Coumadin) 7.[address] [facility] PRN Reason: Protocol - Labs Labs: 06/25/17 08:30 06/25/17 08:30 PT 10.6 Seconds (9.9-11.8) 06/25/17 13:10 INR 0.98 (0.93-1.08) 06/25/17 13:10 APTT 22.3 Seconds (23.7-30.8) L 06/24/17 11:00 Attending/Attestation - Attestation I have personally seen and examined this patient.: Yes I have fully participated in the care of the patient.: Yes I have reviewed all pertinent clinical information, including history, physical exam and plan: Yes Notes (Text): Progress note for 06/24/17 46 year old female with past medical history of cerebral aneursym s/p repair who presented with right sided weakness and facial droop; also had altered mental status / delirium since her recent hospitalization as per son. CT and MRI brain were reviewed. Neurology is following the patient. She is on aspirin and plavix. Echocardiogram /bubble study was negative. Case was discussed cardiology. Also discussed with neurology recommending switch plavix to coumadin. Also requested for hematology evaluation. Her headache has improved. Her labile mood has improved as well. Her mental status is now at baseline. Psychiatry evaluation was appreciated. Anemia workup was reviewed. Will start B12. Hematology evaluation was requested as above. PT evaluation was appreciated who recommended home with home services. Sara Oconnell MD Hospitalist.
[2017-06-25 10:55] LABS: BASO # 0.03 K/mm3 (0.0-2.0); BASO % 0.5 % (0.0-3.0); EOS # 0.2 (0.0-0.7); EOS % 3.5 % (1.5-5.0); GRAN # 3.1 (1.4-6.5); GRAN % 49.9 % (50.0-68.0); HEMATOCRIT 24.5 % (36.0-48.0); LYMPH # 2.3 (1.2-3.4); LYMPH % 36.8 % (22.0-35.0); MEAN CELL VOLUME 102.1 fl (80.0-105.0); MEAN CORPUSCULAR HEMOGLOBIN 32.5 pg (25.0-35.0); MEAN CORPUSCULAR HGB CONC 31.8 g/dl (31.0-37.0); MONO # 0.6 (0.1-0.6); MONO % 9.3 % (1.0-6.0); RED CELL DISTRIBUTION WIDTH 16.9 % (11.5-14.5); WHITE BLOOD COUNT 6.2 10^3/ul (4.5-11.0)
[2017-06-25 11:08] LABS: ALB/GLOB RATIO 1.3 (1.1-1.8); ALKALINE PHOSPHATASE 79 U/L (38-126); ALT/SGPT 21 U/L (7-56); AST/SGOT 23 U/L (14-36); BLOOD UREA NITROGEN 16 mg/dL (7-21); CALCIUM 8.7 mg/dL (8.4-10.5); CARBON DIOXIDE 25 mmol/L (21-33); CHLORIDE 105 mmol/L (98-107); GFR AFRICAN-AMERICAN > 60; GLUCOSE,RANDOM 78 mg/dL (70-110); POTASSIUM 4.1 mmol/L (3.6-5.0); SODIUM 137 mmol/L (132-148); TOTAL PROTEIN 5.6 g/dL (5.8-8.3)
[2017-06-25 11:11] LABS: BILIRUBIN,TOTAL < 0.1 mg/dL (0.2-1.3)
--- NOTE | 2017-06-25 13:05 | CP.PCM.PN ---
<Ty Singh - Last Filed: 06/29/17 20:05> Subjective - Date & Time of Evaluation Date of Evaluation: 06/25/17 Time of Evaluation: 07:00 - Subjective Subjective: Internal Medicine Progress Note Patient was seen and evaluated bedside. Patient did not have any acute events overnight. Son was bedside when I spoke to the patient. Patient said she felt very good today and the headache was almost gone. She did not have any other complaints. Objective - Vital Signs/Intake and Output Vital Signs (last 24 hours): Temp Pulse Resp BP Pulse Ox 97.7 F 97 H 20 115/66 99 06/25/17 12:00 06/25/17 12:00 06/25/17 12:00 06/25/17 12:00 06/25/17 06:00 Intake and Output: 06/25/17 06/25/17 06:59 18:59 Intake Total 1660 Output Total 700 Balance 960 - Medications Medications: Current Medications Aspirin (Aspirin Chewable) 81 mg PO DAILY [facility] Last Admin: 06/25/17 10:23 Dose: 81 mg Atorvastatin Calcium (Lipitor) 10 mg PO DIN [facility] Last Admin: 06/24/17 17:28 Dose: 10 mg Cyclobenzaprine HCl (Flexeril) 10 mg PO BID [facility] Last Admin: 06/25/17 10:23 Dose: 10 mg Docusate Sodium (Colace) 100 mg PO BID [facility] Last Admin: 06/25/17 10:21 Dose: 100 mg Enoxaparin Sodium (Lovenox) 60 mg SC Q12H [facility] PRN Reason: Protocol Home Med (Home Med) 1 unit PO Q4 [facility] Last Admin: 06/25/17 12:16 Dose: Not Given Sodium Chloride (Sodium Chloride 0.9%) 1,000 mls @ 100 mls/hr IV .Q10H [facility] Last Admin: 06/25/17 12:17 Dose: 100 mls/hr Ibuprofen (Motrin Tab) 400 mg PO Q4 PRN PRN Reason: Headache Last Admin: 06/24/17 09:32 Dose: 400 mg Warfarin Sodium (Coumadin) 7.5 mg PO 1800 [facility] PRN Reason: Protocol - Labs Labs: 06/25/17 08:30 06/25/17 08:30 PT 10.7 Seconds (9.9-11.8) 06/25/17 05:45 INR 0.99 (0.93-1.08) 06/25/17 05:45 APTT 22.3 Seconds (23.7-30.8) L 06/24/17 11:00 - Constitutional Appears: No Acute Distress - Head Exam Head Exam: ATRAUMATIC, NORMAL INSPECTION, NORMOCEPHALIC - Eye Exam Eye Exam: EOMI, Normal appearance, PERRL - Respiratory Exam Respiratory Exam: NORMAL BREATHING PATTERN - Cardiovascular Exam Cardiovascular Exam: REGULAR RHYTHM, +S1, +S2 - GI/Abdominal Exam GI & Abdominal Exam: Normal Bowel Sounds - Neurological Exam Neurological Exam: Alert, Awake, Oriented x3 Neuro motor strength exam: Left Upper Extremity: 5, Right Upper Extremity: 5, Left Lower Extremity: 5, Right Lower Extremity: 5 Assessment and Plan - Assessment and Plan (Free Text) Assessment: 46F with PMH cerebral aneurysm s/p repair, HTN, presented for left sided facial droop and right sided weakness x 2 hrs. Currently the patient does not have left facial droop or right arm weakness. Patient is being worked up for the confusion and AMS. She is also being treated for anemia. Plan: 1. Headache and focal weakness 2/2 likely TIA vs CVA: - currently resolved - Neurology consulted Neuro checks Q2h 2. Confusion/ AMS : Embolic stroke vs cerebral vasospasm vs procedural related emboli - MRI Brain performed and obtained - Per Neurology MRI of the brain showed multiple ischemic strokes involving both hemispheres as well as the posterior circulation. - hx of cerebral aneurysm repair at [facility] 3 weeks ago; discharged past , stayed in ICU for 3 weeks, developed ICU psychosis as per son. - full stroke work-up being done - echocardiography with bubble study did not reveal any shunts. 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 Anemia- Acute on chronic - Hgb is 7.8 - B12 Given - anemia workup ordered - patient transfused 1 unit of prbc per hemetology Dr. Patel - FOBT done - Continue to monitor H/H 4. HLD - continue Lipitor 10 PO 5. UTI: resolved - Macrobid treatment completed 6. Hx of back pain: - continue home med cyclobenzaprine 7. Constipation - continue Colace 8. DVT prophylaxis -SCD <Sara Oconnell - Last Filed: 07/02/17 23:21> Objective - Vital Signs/Intake and Output Vital Signs (last 24 hours): Temp Pulse Resp BP Pulse Ox 98.1 F 90 20 110/69 98 06/26/17 11:40 06/26/17 14:00 06/26/17 11:40 06/26/17 11:40 06/26/17 06:00 - Labs Labs: 06/26/17 05:15 06/26/17 05:15 PT 11.8 Seconds (9.9-11.8) 06/26/17 05:15 INR 1.09 (0.93-1.08) H 06/26/17 05:15 APTT 29.8 Seconds (23.7-30.8) 06/26/17 05:15 Attending/Attestation - Attestation I have personally seen and examined this patient.: Yes I have fully participated in the care of the patient.: Yes I have reviewed all pertinent clinical information, including history, physical exam and plan: Yes Notes (Text): 07/02/17 23:20 46 year old female with past medical history of cerebral aneursym s/p repair who presented with right sided weakness and facial droop; also had altered mental status / delirium since her recent hospitalization as per son. CT and MRI brain were reviewed. Neurology is following the patient. She is on aspirin, coumadin and lovenox. Echocardiogram /bubble study was negative. Cardiology, neurology and hematology are following the patient. Her headache has improved. Her labile mood has improved as well. Her mental status is now at baseline. Psychiatry evaluation was appreciated. Continue with B12 +/- PRBC transfusions for anemia. PT evaluation was appreciated who recommended home with home services. Sara Oconnell MD Hospitalist.
[2017-06-25 13:20] LABS: INR 0.98 (0.93-1.08)
[2017-06-25 13:54] LABS: FOLATE 13.6 ng/mL
--- NOTE | 2017-06-25 14:36 | PN ---
DATE: SUBJECTIVE: The patient is fully alert, awake, and oriented and her son is next to her. No headache or dizziness. PHYSICAL EXAMINATION: VITAL SIGNS: Blood pressure 132/83, heart rate 81, temperature is 97.6, and respirations 20. HEENT: Pale conjunctivae. CHEST: Clear. HEART: S1 and S2, regular. EXTREMITIES: No edema. LABORATORY DATA: Hemoglobin and hematocrit 7.8 and 24.5, white count and platelet count are within normal limits. SMA-7 is within normal limits. ASSESSMENT: 1. Multiple bilateral small embolic cerebral infarcts. 2. Status post coiling of [place] aneurysm apparently secondary to bleeding some few weeks ago at . RECOMMENDATIONS: Continue aspirin 81 mg once a day, Keppra 500 mg twice a day, and Lipitor 10 mg once a day. The patient will start the Coumadin 5 mg, was given yesterday and the case was discussed with both Dr. Oconnell and the medical apparatus model maker. Lamin Gutierrez MD
[2017-06-25] MEDS: Enoxaparin 60 mg Syringe SC SCH (14:46)
--- NOTE | 2017-06-25 17:16 | CP.PCM.PN ---
<Fran Galvan - Last Filed: 06/25/17 16:41> Subjective - Date & Time of Evaluation Date of Evaluation: 06/25/17 Time of Evaluation: 09:20 - Subjective Subjective: Neurology progress note for Dr. Galloway service Patient seen and examined at bedside initially, then later OOB in chair. Through glass or mirror inspector, patient reports continuing improvement; no overt confusion evident at time of exam. She still has difficulty remembering the day of the week, but knows the month/year, and is oriented to herself, location , and situation. Still denies any acute complaints, including weakness, headache, vision changes, or pain. Objective - Vital Signs/Intake and Output Vital Signs (last 24 hours): Temp Pulse Resp BP Pulse Ox 97.7 F 97 H 20 115/66 99 06/25/17 12:00 06/25/17 12:00 06/25/17 12:00 06/25/17 12:00 06/25/17 06:00 Intake and Output: 06/25/17 06/25/17 06:59 18:59 Intake Total 1660 Output Total 700 Balance 960 - Medications Medications: Current Medications Aspirin (Aspirin Chewable) 81 mg PO DAILY [facility] Last Admin: 06/25/17 10:23 Dose: 81 mg Atorvastatin Calcium (Lipitor) 10 mg PO DIN [facility] Last Admin: 06/24/17 17:28 Dose: 10 mg Cyclobenzaprine HCl (Flexeril) 10 mg PO BID [facility] Last Admin: 06/25/17 10:23 Dose: 10 mg Docusate Sodium (Colace) 100 mg PO BID [facility] Last Admin: 06/25/17 10:21 Dose: 100 mg Enoxaparin Sodium (Lovenox) 60 mg SC Q12H [facility] PRN Reason: Protocol Last Admin: 06/25/17 14:46 Dose: 60 mg Home Med (Home Med) 1 unit PO Q4 [facility] Last Admin: 06/25/17 16:29 Dose: Not Given Sodium Chloride (Sodium Chloride 0.9%) 1,000 mls @ 100 mls/hr IV .Q10H [facility] Last Admin: 06/25/17 12:17 Dose: 100 mls/hr Ibuprofen (Motrin Tab) 400 mg PO Q4 PRN PRN Reason: Headache Last Admin: 06/24/17 09:32 Dose: 400 mg Warfarin Sodium (Coumadin) 7.5 mg PO 1800 [facility] PRN Reason: Protocol - Labs Labs: 06/25/17 08:30 06/25/17 08:30 PT 10.6 Seconds (9.9-11.8) 06/25/17 13:10 INR 0.98 (0.93-1.08) 06/25/17 13:10 APTT 22.3 Seconds (23.7-30.8) L 06/24/17 11:00 - Additional Findings Additional findings: - Constitutional Appears: Well, Non-toxic, No Acute Distress - Head Exam Head Exam: ATRAUMATIC, NORMAL INSPECTION, NORMOCEPHALIC - Eye Exam Eye Exam: EOMI, Normal appearance. absent: Conjunctival injection, Scleral icterus Pupil Exam: absent: Irregular, Unequal - Neck Exam Neck Exam: Full ROM, Normal Inspection - Respiratory Exam Respiratory Exam: Clear to Ausculation Bilateral, NORMAL BREATHING PATTERN. absent: Accessory Muscle Use, Chest Wall Tenderness, Decreased Breath Sounds, Rales, Rhonchi, Wheezes - Cardiovascular Exam Cardiovascular Exam: REGULAR RHYTHM, RRR, +S2. absent: Bradycardia, Tachycardia , Irregular Rhythm, JVD, +S4 - GI/Abdominal Exam GI & Abdominal Exam: Soft, Normal Bowel Sounds. - Extremities Exam Extremities Exam: Full ROM, Normal Capillary Refill, Normal Inspection. absent : Joint Swelling, Pedal Edema - Neurological Exam Neurological Exam: Alert, Awake, moving all extremities spontaneously, following all commands appropriately Neuro motor strength exam: Left Upper Extremity: 5, Right Upper Extremity: 5, Left Lower Extremity: 5, Right Lower Extremity: 5 No pronator drift today, no ataxia, no tremors at rest, no intention tremors - Psychiatric Exam Psychiatric exam: Normal Affect, Normal Mood - Skin Skin Exam: Dry, Intact, Normal Color, Warm Assessment and Plan - Assessment and Plan (Free Text) Assessment: This is a 46 yo F with PMH of HTN, herniated discs, and possible cervical cancer with recent hx of ruptured L-ICA aneurysm and subsequent subarachnoid hemorrhage s/p coiling 3 weeks prior (At [facility]) who presented to [facility] with complaint of right sided facial droop and right sided weakness x 2 hrs. She is now being treated possible embolic disease vs procedural-related emboli in the setting of multiple ischemic strokes on MRI. Her reported ICU psychosis is more likely encephalopathy 2/2 multiple ischemic strokes, including the left temporal lobe. Bubble study echo was negative for PFO. Due to her embolic disease, started on anticoagulation with Coumadin, bridging with Lovenox. Heme- onc has been consulted for hypercoagulable workup. Plan: 1) Continue ASA 81mg and Lipitor PO daily for stroke prevention 2) Coumadin 5mg yesterday, INR from 0.97 to 0.99, will give 7.5mg today. Bridge with therapeutic lovenox (60mg SC q12) 3) B12 lvl low, B12 injection x1 ordered 4) Continue Keppra for seizure ppx, but will likely d/c prior to discharge 5) PT/OT, will need some degree of rehab after discharge 6) Cognitive therapy 7) Heme-onc consulted for hypercoagulability workup, appreciate their recs Patient seen, reviewed, and discussed with attending, Dr. Galloway. <Gonzalo Galloway - Last Filed: 06/26/17 09:54> Objective - Vital Signs/Intake and Output Vital Signs (last 24 hours): Temp Pulse Resp BP Pulse Ox 98.3 F 99 H 19 128/77 98 06/26/17 06:00 06/26/17 09:51 06/26/17 06:00 06/26/17 09:51 06/26/17 06:00 Intake and Output: 06/26/17 06/26/17 06:59 18:59 Intake Total 1885 Output Total 2 Balance 1883 - Medications Medications: Current Medications Aspirin (Aspirin Chewable) 81 mg PO DAILY [facility] Last Admin: 06/26/17 09:46 Dose: 81 mg Atorvastatin Calcium (Lipitor) 10 mg PO DIN [facility] Last Admin: 06/25/17 18:18 Dose: 10 mg Cyclobenzaprine HCl (Flexeril) 10 mg PO BID [facility] Last Admin: 06/26/17 09:46 Dose: 10 mg Docusate Sodium (Colace) 100 mg PO BID [facility] Last Admin: 06/26/17 09:46 Dose: 100 mg Enoxaparin Sodium (Lovenox) 60 mg SC Q12H [facility] PRN Reason: Protocol Last Admin: 06/26/17 03:58 Dose: 60 mg Home Med (Home Med) 1 unit PO Q4 [facility] Last Admin: 06/26/17 08:06 Dose: Not Given Ibuprofen (Motrin Tab) 400 mg PO Q4 PRN PRN Reason: Headache Last Admin: 06/24/17 09:32 Dose: 400 mg Warfarin Sodium (Coumadin) 7.5 mg PO 1800 [facility] PRN Reason: Protocol Last Admin: 06/25/17 18:18 Dose: 7.5 mg - Labs Labs: 06/26/17 05:15 06/26/17 05:15 PT 11.8 Seconds (9.9-11.8) 06/26/17 05:15 INR 1.09 (0.93-1.08) H 06/26/17 05:15 APTT 29.8 Seconds (23.7-30.8) 06/26/17 05:15 Attending/Attestation - Attestation I have personally seen and examined this patient.: Yes I have fully participated in the care of the patient.: Yes I have reviewed all pertinent clinical information, including history, physical exam and plan: Yes
[2017-06-26] MEDS: Sodium Chloride 0.9% 1,000 ML IV SCH (01:42)
[2017-06-26] MEDS: NIMODIPINE 30 MG PO SCH ×4 (03:55→12:57)
[2017-06-26] MEDS: Enoxaparin 60 mg Syringe SC SCH ×2 (03:58→13:12)
[2017-06-26 06:15] LABS: INR 1.09 (0.93-1.08); PARTIAL THROMBOPLASTIN TIME 29.8 Seconds (23.7-30.8)
[2017-06-26 06:17] LABS: BASO # 0.05 K/mm3 (0.0-2.0); BASO % 0.7 % (0.0-3.0); BLOOD UREA NITROGEN 17 mg/dL (7-21); CALCIUM 8.5 mg/dL (8.4-10.5); CARBON DIOXIDE 23 mmol/L (21-33); CHLORIDE 106 mmol/L (95-110); EOS # 0.2 (0.0-0.7); EOS % 3.1 % (1.5-5.0); GFR AFRICAN-AMERICAN > 60; GLUCOSE,RANDOM 93 mg/dL (70-110); GRAN # 3.87 (1.4-6.5); GRAN % 52.3 % (50.0-68.0); HEMATOCRIT 29.1 % (36.0-48.0); LYMPH # 2.7 (1.2-3.4); LYMPH % 36.1 % (22.0-35.0); MEAN CELL VOLUME 98.6 fl (80.0-105.0); MEAN CORPUSCULAR HEMOGLOBIN 31.5 pg (25.0-35.0); MEAN PLATELET VOLUME 7.9 fl (7.0-11.0); MONO # 0.6 (0.1-0.6); MONO % 7.8 % (1.0-6.0); RED CELL DISTRIBUTION WIDTH 18.4 % (11.5-14.5); SODIUM 137 mmol/L (132-148); WHITE BLOOD COUNT 7.4 10^3/ul (4.5-11.0)
[2017-06-26 06:39] VITALS: O2SAT 98
[2017-06-26 11:41] VITALS: BP 110/69; RESP 20; TEMP 98.1
--- NOTE | 2017-06-26 14:34 | CP.PCM.DIS ---
Provider - Provider Date of Admission: 06/22/17 12:45 Attending physician: Nguyễn Carlos MD Time Spent in preparation of Discharge (in minutes): 43 Hospital Course - Lab Results Lab Results: Most Recent Lab Values WBC 7.4 10^3/ul (4.5-11.0) 06/26/17 05:15 RBC 2.95 10^6/uL (3.5-6.1) L 06/26/17 05:15 Hgb 9.3 g/dL (12.0-16.0) L 06/26/17 05:15 Hct 29.1 % (36.0-48.0) L 06/26/17 05:15 MCV 98.6 fl (80.0-105.0) D 06/26/17 05:15 MCH 31.5 pg (25.0-35.0) 06/26/17 05:15 MCHC 32.0 g/dl (31.0-37.0) 06/26/17 05:15 RDW 18.4 % (11.5-14.5) H 06/26/17 05:15 Plt Count 323 10^3/uL (120.0-450.0) 06/26/17 05:15 MPV 7.9 fl (7.0-11.0) 06/26/17 05:15 Gran % 52.3 % (50.0-68.0) 06/26/17 05:15 Lymph % (Auto) 36.1 % (22.0-35.0) H 06/26/17 05:15 [place] % (Auto) 7.8 % (1.0-6.0) H 06/26/17 05:15 Eos % (Auto) 3.1 % (1.5-5.0) 06/26/17 05:15 Baso % (Auto) 0.7 % (0.0-3.0) 06/26/17 05:15 Gran # 3.87 (1.4-6.5) 06/26/17 05:15 Lymph # 2.7 (1.2-3.4) 06/26/17 05:15 [place] # 0.6 (0.1-0.6) 06/26/17 05:15 Eos # 0.2 (0.0-0.7) 06/26/17 05:15 Baso # 0.05 K/mm3 (0.0-2.0) 06/26/17 05:15 Retic Count 3.13 % (0.5-1.5) H 06/25/17 05:45 PT 11.8 Seconds (9.9-11.8) 06/26/17 05:15 INR 1.09 (0.93-1.08) H 06/26/17 05:15 APTT 29.8 Seconds (23.7-30.8) 06/26/17 05:15 Sodium 137 mmol/L (132-148) 06/26/17 05:15 Potassium 4.0 mmol/L (3.6-5.0) 06/26/17 05:15 Chloride 106 mmol/L (95-110) 06/26/17 05:15 Carbon Dioxide 23 mmol/L (21-33) 06/26/17 05:15 Anion Gap 12 (10-20) 06/26/17 05:15 BUN 17 mg/dL (7-21) 06/26/17 05:15 Creatinine 0.5 mg/dL (0.5-1.4) 06/26/17 05:15 Est GFR ( Amer) > 60 06/26/17 05:15 Est GFR (Non-Af Amer) > 60 06/26/17 05:15 Random Glucose 93 mg/dL (70-110) 06/26/17 05:15 Calcium 8.5 mg/dL (8.4-10.5) 06/26/17 05:15 Iron 77 ug/dL (45-180) 06/21/17 06:42 TIBC 301 ug/dL (265-497) 06/21/17 06:42 % Saturation 26 % (20-55) 06/21/17 06:42 Ferritin 43.1 ng/mL 06/25/17 05:45 Total Bilirubin < 0.1 mg/dL (0.2-1.3) L 06/25/17 08:30 AST 23 U/L (14-36) 06/25/17 08:30 ALT 21 U/L (7-56) 06/25/17 08:30 Alkaline Phosphatase 79 U/L (38-126) 06/25/17 08:30 Total Protein 5.6 g/dL (5.8-8.3) L 06/25/17 08:30 Albumin 3.2 g/dL (3.0-4.8) 06/25/17 08:30 Globulin 2.4 gm/dL 06/25/17 08:30 Albumin/Globulin Ratio 1.3 (1.1-1.8) 06/25/17 08:30 Triglycerides 126 mg/dL (35-160) 06/23/17 05:15 Cholesterol 197 mg/dL (130-200) 06/23/17 05:15 LDL Cholesterol Direct 105 mg/dL (0-129) 06/23/17 05:15 HDL Cholesterol 55 mg/dL (29-60) 06/23/17 05:15 Vitamin B12 236 pg/mL (239-931) L 06/25/17 05:45 Folate 13.6 ng/mL 06/25/17 05:45 TSH 3rd Generation 3.20 mIU/mL (0.46-4.68) 06/21/17 06:42 Urine Color Yellow (YELLOW) 06/21/17 17:00 Urine Appearance Clear (CLEAR) 06/21/17 17:00 Urine pH 7.5 (4.7-8.0) 06/21/17 17:00 Ur Specific [place] 1.015 (1.005-1.035) 06/21/17 17:00 Urine Protein Negative mg/dL (<30 mg/dL) 06/21/17 17:00 Urine Glucose (UA) Negative mg/dL (NEGATIVE) 06/21/17 17:00 Urine Ketones Negative mg/dL (NEGATIVE) 06/21/17 17:00 Urine Blood Negative (NEGATIVE) 06/21/17 17:00 Urine Nitrate Negative (NEGATIVE) 06/21/17 17:00 Urine Bilirubin Negative (NEGATIVE) 06/21/17 17:00 Urine Urobilinogen 0.2 E.U./dL (<1 E.U./dL) 06/21/17 17:00 Ur Leukocyte Esterase Trace [place]/uL (NEGATIVE) H 06/21/17 17:00 Urine RBC 0 - 2 /hpf (0-2) 06/21/17 17:00 Urine WBC 1 - 3 /hpf (0-6) 06/21/17 17:00 Urine Bacteria Few (NEG) 06/21/17 17:00 Stool Occult Blood Negative (NEGATIVE) 06/26/17 10:41 Urine Opiates Screen Negative (NEGATIVE) 06/21/17 17:00 Urine Methadone Screen Negative (NEGATIVE) 06/21/17 17:00 Ur Barbiturates Screen Negative (NEGATIVE) 06/21/17 17:00 Levetiracetam 11.6 mcg/mL 06/21/17 07:53 Ur Phencyclidine Scrn Negative (NEGATIVE) 06/21/17 17:00 Ur Amphetamines Screen Negative (NEGATIVE) 06/21/17 17:00 U Benzodiazepines Scrn Negative (NEGATIVE) 06/21/17 17:00 U Oth Cocaine Metabols Negative (NEGATIVE) 06/21/17 17:00 U Cannabinoids Screen Negative (NEGATIVE) 06/21/17 17:00 Blood Type O POSITIVE 06/25/17 13:28 Blood Type Confirm O POSITIVE 06/25/17 14:00 Antibody Screen Negative 06/25/17 13:28 Crossmatch See Detail 06/25/17 13:28 BBK History Checked No verified bt 06/25/17 13:28 - Hospital Course Hospital Course: 46F with PMH cerebral aneurysm s/p repair, HTN, presents for left sided facial droop and right sided weakness x 2 hrs. It started this afternoon, when pt started complaining of a frontal headache, with associated right sided weakness and right facial droop, noticed as per her son. Resolved 2 hrs later, but wanted to come to ED since pt has a hx of repair of aneurysm. Denies f/c/n/v, anorexia, poor intake. Pt's son states that pt was in ICU at [facility] for 3 weeks for cerebal aneursym repair, with resulting ICU psychosis, which is slowly improving at home, since her discharge this past . In ED, significant lab and imaging include hgb 8.5 (unknown baseline), Ct head neg for acute changes, received reglan and percocet, which helped with her headache. Currently, pt sleepy, denies any weakness, facial droop or headache. Anemia study ordered and came back normal, nimodipine held if BP < 130. neuro check every 2 hours, feed assistance, keppra level ordered, urine tox ordered 06/22 full stroke work-up performed and continuous telemetry ,echocardiogram/ bubble study ordered MRA of the head/neck ordered , continuous telemetry, 06/23 waiting for psyche workup, MRA head neck came back normal, lipitor 10 started, follow Hgb 06/24 waiting to discharge, neuro recommends aspirin and coumadin, hypercoag workout ordered by Jorge, possible D/c after Jorge sees the patient 06/25: Neuro stopped Plavix, went to Coumadin. Continue monitoring H&H. 06/26: Spoke to patient and son about anticoag risks. Patient and son taught how to inject Lovenox. Cleared by neuro for discharge. - Date & Time of H&P Date of H&P: 06/26/17 Time of H&P: 14:34 Discharge Exam - Head Exam Head Exam: ATRAUMATIC, NORMAL INSPECTION, NORMOCEPHALIC Discharge Plan - Discharge Medications Prescriptions: Atorvastatin [Lipitor] 40 mg PO HS #30 tab Enoxaparin [Lovenox] 60 mg SQ Q12H #6 syr Warfarin [Coumadin] 5 mg PO 1800 #3 tab - Follow Up Plan Condition: FAIR Disposition: HOME/ ROUTINE Instructions: Transient Ischemic Attack (DC), Transient Ischemic Attack (GEN), Heart Healthy Diet (DC), Heart Healthy Diet (GEN) Additional Instructions: 1) Patient to take 5 mg of Coumadin on Thursday, Thursday, and Thursday. 2) Follow-up with PMD on Thursday to check INR. 3) Do not take NSAIDs 4) Patient to return to nearest Emergency Department for any stroke-like symptoms. 5) Patient's son instructed on how to use Lovenox injection.
[2017-06-26 14:43] VITALS: PULSE 90
[2017-06-26 20:30] LABS: PTT-LA 27 sec (< OR = 40)
--- NOTE | 2017-06-27 13:37 | CP.PCM.DIS ---
<Lay Self - Last Filed: 06/27/17 13:48> Provider - Provider Date of Admission: 06/22/17 12:45 Attending physician: Nguyễn Carlos MD Consults: Neurology: Dr Galloway Heme/onc: Dr Patel Cardio: Dr Gallardo Time Spent in preparation of Discharge (in minutes): 45 Diagnosis - Discharge Diagnosis (1) Lacunar infarction Status: Acute (2) Delirium Status: Resolved (3) Anemia Status: Acute (4) CVA (cerebral vascular accident) Status: Acute (5) Megaloblastic anemia due to B12 deficiency Status: Acute (6) Hypertension Status: Chronic (7) Back sprain or strain Status: Chronic (8) UTI (urinary tract infection) Status: Resolved (9) Constipation Status: Resolved (10) Dyslipidemia Status: Acute Hospital Course - Lab Results Lab Results: Most Recent Lab Values WBC 7.4 10^3/ul (4.5-11.0) 06/26/17 05:15 RBC 2.95 10^6/uL (3.5-6.1) L 06/26/17 05:15 Hgb 9.3 g/dL (12.0-16.0) L 06/26/17 05:15 Hct 29.1 % (36.0-48.0) L 06/26/17 05:15 MCV 98.6 fl (80.0-105.0) D 06/26/17 05:15 MCH 31.5 pg (25.0-35.0) 06/26/17 05:15 MCHC 32.0 g/dl (31.0-37.0) 06/26/17 05:15 RDW 18.4 % (11.5-14.5) H 06/26/17 05:15 Plt Count 323 10^3/uL (120.0-450.0) 06/26/17 05:15 MPV 7.9 fl (7.0-11.0) 06/26/17 05:15 Gran % 52.3 % (50.0-68.0) 06/26/17 05:15 Lymph % (Auto) 36.1 % (22.0-35.0) H 06/26/17 05:15 [place] % (Auto) 7.8 % (1.0-6.0) H 06/26/17 05:15 Eos % (Auto) 3.1 % (1.5-5.0) 06/26/17 05:15 Baso % (Auto) 0.7 % (0.0-3.0) 06/26/17 05:15 Gran # 3.87 (1.4-6.5) 06/26/17 05:15 Lymph # 2.7 (1.2-3.4) 06/26/17 05:15 [place] # 0.6 (0.1-0.6) 06/26/17 05:15 Eos # 0.2 (0.0-0.7) 06/26/17 05:15 Baso # 0.05 K/mm3 (0.0-2.0) 06/26/17 05:15 Retic Count 3.13 % (0.5-1.5) H 06/25/17 05:45 PT 11.8 Seconds (9.9-11.8) 06/26/17 05:15 INR 1.09 (0.93-1.08) H 06/26/17 05:15 APTT 29.8 Seconds (23.7-30.8) 06/26/17 05:15 Protein C Activity 140 % (70-180) 06/24/17 09:39 Protein S Activity 89 % (60-140) 06/24/17 09:39 Factor II Activity 167 % (70-150) H 06/24/17 09:39 Sodium 137 mmol/L (132-148) 06/26/17 05:15 Potassium 4.0 mmol/L (3.6-5.0) 06/26/17 05:15 Chloride 106 mmol/L (95-110) 06/26/17 05:15 Carbon Dioxide 23 mmol/L (21-33) 06/26/17 05:15 Anion Gap 12 (10-20) 06/26/17 05:15 BUN 17 mg/dL (7-21) 06/26/17 05:15 Creatinine 0.5 mg/dL (0.5-1.4) 06/26/17 05:15 Est GFR ( Amer) > 60 06/26/17 05:15 Est GFR (Non-Af Amer) > 60 06/26/17 05:15 Random Glucose 93 mg/dL (70-110) 06/26/17 05:15 Calcium 8.5 mg/dL (8.4-10.5) 06/26/17 05:15 Iron 77 ug/dL (45-180) 06/21/17 06:42 TIBC 301 ug/dL (265-497) 06/21/17 06:42 % Saturation 26 % (20-55) 06/21/17 06:42 Ferritin 43.1 ng/mL 06/25/17 05:45 Total Bilirubin < 0.1 mg/dL (0.2-1.3) L 06/25/17 08:30 AST 23 U/L (14-36) 06/25/17 08:30 ALT 21 U/L (7-56) 06/25/17 08:30 Alkaline Phosphatase 79 U/L (38-126) 06/25/17 08:30 Total Protein 5.6 g/dL (5.8-8.3) L 06/25/17 08:30 Albumin 3.2 g/dL (3.0-4.8) 06/25/17 08:30 Globulin 2.4 gm/dL 06/25/17 08:30 Albumin/Globulin Ratio 1.3 (1.1-1.8) 06/25/17 08:30 Triglycerides 126 mg/dL (35-160) 06/23/17 05:15 Cholesterol 197 mg/dL (130-200) 06/23/17 05:15 LDL Cholesterol Direct 105 mg/dL (0-129) 06/23/17 05:15 HDL Cholesterol 55 mg/dL (29-60) 06/23/17 05:15 Vitamin B12 236 pg/mL (239-931) L 06/25/17 05:45 Folate 13.6 ng/mL 06/25/17 05:45 TSH 3rd Generation 3.20 mIU/mL (0.46-4.68) 06/21/17 06:42 Urine Color Yellow (YELLOW) 06/21/17 17:00 Urine Appearance Clear (CLEAR) 06/21/17 17:00 Urine pH 7.5 (4.7-8.0) 06/21/17 17:00 Ur Specific [place] 1.015 (1.005-1.035) 06/21/17 17:00 Urine Protein Negative mg/dL (<30 mg/dL) 06/21/17 17:00 Urine Glucose (UA) Negative mg/dL (NEGATIVE) 06/21/17 17:00 Urine Ketones Negative mg/dL (NEGATIVE) 06/21/17 17:00 Urine Blood Negative (NEGATIVE) 06/21/17 17:00 Urine Nitrate Negative (NEGATIVE) 06/21/17 17:00 Urine Bilirubin Negative (NEGATIVE) 06/21/17 17:00 Urine Urobilinogen 0.2 E.U./dL (<1 E.U./dL) 06/21/17 17:00 Ur Leukocyte Esterase Trace [place]/uL (NEGATIVE) H 06/21/17 17:00 Urine RBC 0 - 2 /hpf (0-2) 06/21/17 17:00 Urine WBC 1 - 3 /hpf (0-6) 06/21/17 17:00 Urine Bacteria Few (NEG) 06/21/17 17:00 Stool Occult Blood Negative (NEGATIVE) 06/26/17 10:41 Urine Opiates Screen Negative (NEGATIVE) 06/21/17 17:00 Urine Methadone Screen Negative (NEGATIVE) 06/21/17 17:00 Ur Barbiturates Screen Negative (NEGATIVE) 06/21/17 17:00 Levetiracetam 11.6 mcg/mL 06/21/17 07:53 Ur Phencyclidine Scrn Negative (NEGATIVE) 06/21/17 17:00 Ur Amphetamines Screen Negative (NEGATIVE) 06/21/17 17:00 U Benzodiazepines Scrn Negative (NEGATIVE) 06/21/17 17:00 U Oth Cocaine Metabols Negative (NEGATIVE) 06/21/17 17:00 U Cannabinoids Screen Negative (NEGATIVE) 06/21/17 17:00 Blood Type O POSITIVE 06/25/17 13:28 Blood Type Confirm O POSITIVE 06/25/17 14:00 Antibody Screen Negative 06/25/17 13:28 Crossmatch See Detail 06/25/17 13:28 BBK History Checked No verified bt 06/25/17 13:28 - Hospital Course Hospital Course: Patient is a 46 y/o F with PMH cerebral aneurysm s/p coiling of the [place] aneurysm, HTN, and neck pain presented with left sided facial droop and right sided weakness. By the time patient arrived to the ED, the symptoms has resolved. Patient had CT head which was negative. Patient had basic labs which revealed anemia. Patient was admitted and neurology was consulted. Neurology recommended MRI of the brain which revealed multiple bilateral embolic cerebral infarcts. MRA of the head and neck, and MRI of the neck were normal. Patient had echo with bubble study which was normal. Based on neurology recommendations , patient was started on Coumadin bridged with Lovenox. Heme/onc was also consulted for hypercoagulable work up which patient will follow as outpatient for the result. [employer] was also consulted for input and agreed with the nursing home anticoagulation recommendations. Furthermore, patient was found to be anemic, with hemoglobin downward trending, work up revealed b12 deficiency, patient was transfused 1 unit as recommended by heme/onc and was giving a shot of vitamin b12. Patient was also treated for uti with macrobid. Patient was seen by PT and recommended home with VNS. Patient is to be discharged, and to follow up with Heme onc in 1-2 week for anemia and hypercoagulable work up report. Patient to also follow up with Neurologist. Patient to follow up with PMD for INR check. Patient's son is to administer Lovenox, all questions were answered, patient and son verbalized understanding. Diet: heart healthy diet Activity: as tolerated. Home VNS and PT. - Date & Time of H&P Date of H&P: 06/21/17 Time of H&P: 03:02 Discharge Exam - Head Exam Head Exam: ATRAUMATIC, NORMAL INSPECTION, NORMOCEPHALIC - Eye Exam Eye Exam: EOMI, Normal appearance, PERRL. absent: Scleral icterus Pupil Exam: NORMAL ACCOMODATION - ENT Exam ENT Exam: Mucous Membranes Moist - Neck Exam Neck exam: Full Rom, Normal Inspection - Respiratory Exam Respiratory Exam: Clear to PA & Lateral, NORMAL BREATHING PATTERN, UNREMARKABLE. absent: Rales, Rhonchi, Wheezes, Respiratory Distress, Stridor - Cardiovascular Exam Cardiovascular Exam: REGULAR RHYTHM, RRR, +S1, +S2. absent: Bradycardia, Tachycardia, Gallop, JVD, Rubs, Systolic Murmur - GI/Abdominal Exam GI & Abdominal Exam: Normal Bowel Sounds, Unremarkable. absent: Distended, Firm , Guarding, Rigid, Soft, Tenderness - Extremities Exam Extremities exam: normal inspection - Back Exam Back exam: NORMAL INSPECTION - Neurological Exam Neurological exam: Alert, CN II-XII Intact, Oriented x3, Reflexes Normal - Psychiatric Exam Psychiatric exam: Normal Affect, Normal Mood - Skin Skin Exam: Dry, Intact, Normal Color, Warm Discharge Plan - Discharge Medications Prescriptions: Atorvastatin [Lipitor] 40 mg PO HS #30 tab Enoxaparin [Lovenox] 60 mg SQ Q12H #6 syr Warfarin [Coumadin] 5 mg PO 1800 #3 tab - Follow Up Plan Condition: FAIR Disposition: HOME/ ROUTINE Instructions: Transient Ischemic Attack (DC), Transient Ischemic Attack (GEN), Heart Healthy Diet (DC), Heart Healthy Diet (GEN) Additional Instructions: 1) Patient to take 5 mg of Coumadin on Thursday, Thursday, and Thursday. 2) Follow-up with PMD on Thursday to check INR. 3) Do not take NSAIDs 4) Patient to return to nearest Emergency Department for any stroke-like symptoms. 5) Patient's son instructed on how to use Lovenox injection. Referrals: Tonio Patel MD [Staff Provider] - Gonzalo Galloway MD [Staff Provider] - <Terrance HAWKINS,Nguyễn - Last Filed: 06/27/17 14:17> Provider - Provider Date of Admission: 06/22/17 12:45 Attending physician: Nguyễn Carlos MD Hospital Course - Lab Results Lab Results: Most Recent Lab Values WBC 7.4 10^3/ul (4.5-11.0) 06/26/17 05:15 RBC 2.95 10^6/uL (3.5-6.1) L 06/26/17 05:15 Hgb 9.3 g/dL (12.0-16.0) L 06/26/17 05:15 Hct 29.1 % (36.0-48.0) L 06/26/17 05:15 MCV 98.6 fl (80.0-105.0) D 06/26/17 05:15 MCH 31.5 pg (25.0-35.0) 06/26/17 05:15 MCHC 32.0 g/dl (31.0-37.0) 06/26/17 05:15 RDW 18.4 % (11.5-14.5) H 06/26/17 05:15 Plt Count 323 10^3/uL (120.0-450.0) 06/26/17 05:15 MPV 7.9 fl (7.0-11.0) 06/26/17 05:15 Gran % 52.3 % (50.0-68.0) 06/26/17 05:15 Lymph % (Auto) 36.1 % (22.0-35.0) H 06/26/17 05:15 [place] % (Auto) 7.8 % (1.0-6.0) H 06/26/17 05:15 Eos % (Auto) 3.1 % (1.5-5.0) 06/26/17 05:15 Baso % (Auto) 0.7 % (0.0-3.0) 06/26/17 05:15 Gran # 3.87 (1.4-6.5) 06/26/17 05:15 Lymph # 2.7 (1.2-3.4) 06/26/17 05:15 [place] # 0.6 (0.1-0.6) 06/26/17 05:15 Eos # 0.2 (0.0-0.7) 06/26/17 05:15 Baso # 0.05 K/mm3 (0.0-2.0) 06/26/17 05:15 Retic Count 3.13 % (0.5-1.5) H 06/25/17 05:45 PT 11.8 Seconds (9.9-11.8) 06/26/17 05:15 INR 1.09 (0.93-1.08) H 06/26/17 05:15 APTT 29.8 Seconds (23.7-30.8) 06/26/17 05:15 Protein C Activity 140 % (70-180) 06/24/17 09:39 Protein S Activity 89 % (60-140) 06/24/17 09:39 Factor II Activity 167 % (70-150) H 06/24/17 09:39 Sodium 137 mmol/L (132-148) 06/26/17 05:15 Potassium 4.0 mmol/L (3.6-5.0) 06/26/17 05:15 Chloride 106 mmol/L (95-110) 06/26/17 05:15 Carbon Dioxide 23 mmol/L (21-33) 06/26/17 05:15 Anion Gap 12 (10-20) 06/26/17 05:15 BUN 17 mg/dL (7-21) 06/26/17 05:15 Creatinine 0.5 mg/dL (0.5-1.4) 06/26/17 05:15 Est GFR ( Amer) > 60 06/26/17 05:15 Est GFR (Non-Af Amer) > 60 06/26/17 05:15 Random Glucose 93 mg/dL (70-110) 06/26/17 05:15 Calcium 8.5 mg/dL (8.4-10.5) 06/26/17 05:15 Iron 77 ug/dL (45-180) 06/21/17 06:42 TIBC 301 ug/dL (265-497) 06/21/17 06:42 % Saturation 26 % (20-55) 06/21/17 06:42 Ferritin 43.1 ng/mL 06/25/17 05:45 Total Bilirubin < 0.1 mg/dL (0.2-1.3) L 06/25/17 08:30 AST 23 U/L (14-36) 06/25/17 08:30 ALT 21 U/L (7-56) 06/25/17 08:30 Alkaline Phosphatase 79 U/L (38-126) 06/25/17 08:30 Total Protein 5.6 g/dL (5.8-8.3) L 06/25/17 08:30 Albumin 3.2 g/dL (3.0-4.8) 06/25/17 08:30 Globulin 2.4 gm/dL 06/25/17 08:30 Albumin/Globulin Ratio 1.3 (1.1-1.8) 06/25/17 08:30 Triglycerides 126 mg/dL (35-160) 06/23/17 05:15 Cholesterol 197 mg/dL (130-200) 06/23/17 05:15 LDL Cholesterol Direct 105 mg/dL (0-129) 06/23/17 05:15 HDL Cholesterol 55 mg/dL (29-60) 06/23/17 05:15 Vitamin B12 236 pg/mL (239-931) L 06/25/17 05:45 Folate 13.6 ng/mL 06/25/17 05:45 TSH 3rd Generation 3.20 mIU/mL (0.46-4.68) 06/21/17 06:42 Urine Color Yellow (YELLOW) 06/21/17 17:00 Urine Appearance Clear (CLEAR) 06/21/17 17:00 Urine pH 7.5 (4.7-8.0) 06/21/17 17:00 Ur Specific [place] 1.015 (1.005-1.035) 06/21/17 17:00 Urine Protein Negative mg/dL (<30 mg/dL) 06/21/17 17:00 Urine Glucose (UA) Negative mg/dL (NEGATIVE) 06/21/17 17:00 Urine Ketones Negative mg/dL (NEGATIVE) 06/21/17 17:00 Urine Blood Negative (NEGATIVE) 06/21/17 17:00 Urine Nitrate Negative (NEGATIVE) 06/21/17 17:00 Urine Bilirubin Negative (NEGATIVE) 06/21/17 17:00 Urine Urobilinogen 0.2 E.U./dL (<1 E.U./dL) 06/21/17 17:00 Ur Leukocyte Esterase Trace Davy/uL (NEGATIVE) H 06/21/17 17:00 Urine RBC 0 - 2 /hpf (0-2) 06/21/17 17:00 Urine WBC 1 - 3 /hpf (0-6) 06/21/17 17:00 Urine Bacteria Few (NEG) 06/21/17 17:00 Stool Occult Blood Negative (NEGATIVE) 06/26/17 10:41 Urine Opiates Screen Negative (NEGATIVE) 06/21/17 17:00 Urine Methadone Screen Negative (NEGATIVE) 06/21/17 17:00 Ur Barbiturates Screen Negative (NEGATIVE) 06/21/17 17:00 Levetiracetam 11.6 mcg/mL 06/21/17 07:53 Ur Phencyclidine Scrn Negative (NEGATIVE) 06/21/17 17:00 Ur Amphetamines Screen Negative (NEGATIVE) 06/21/17 17:00 U Benzodiazepines Scrn Negative (NEGATIVE) 06/21/17 17:00 U Oth Cocaine Metabols Negative (NEGATIVE) 06/21/17 17:00 U Cannabinoids Screen Negative (NEGATIVE) 06/21/17 17:00 Blood Type O POSITIVE 06/25/17 13:28 Blood Type Confirm O POSITIVE 06/25/17 14:00 Antibody Screen Negative 06/25/17 13:28 Crossmatch See Detail 06/25/17 13:28 BBK History Checked No verified bt 06/25/17 13:28 Attending/Attestation - Attestation I have personally seen and examined this patient.: Yes I have fully participated in the care of the patient.: Yes I have reviewed all pertinent clinical information, including history, physical exam and plan: Yes Notes (Text): 06/27/17 14:10 Patient was seen and examined with medical assembly. Agreed with resident assessment and plan. 46 year old female with past medical history of cerebral aneursym s/p repair who presented with right sided weakness and facial droop; MRI brain showed multiple embolic . Echocardiogram /bubble study were negative. Case was discussed cardiology. Neurology recommending switch plavix to coumadin. Her headache has improved. Patient did not has any focal deficit at the time of discharge.Patient INR was not therapeautic at the time of discharge.She will be discharged home with bridging lovenox and warfarin.She will need to have repeat INR checked on Thursday with PMD .Warfarin dose may need to be changed based on INR. The risk and benefit of anticoagulation was discussed in detail with patient and son. Patient and son was given education about lovenox injection prior to discharge. Management plan was discussed in detail with patient Education was provided.
[2017-06-27 15:52] LABS: CARDIOLIPIN AB (IGA) <11 APL (<=11)
[2017-06-28 04:00] LABS: B2 GLYCOPROTEIN I AB(IGA) <9 SAU (<=20); B2 GLYCOPROTEIN I AB(IGG) <9 SGU (<=20); B2 GLYCOPROTEIN I AB(IGM) <9 SMU (<=20)
[2017-06-28 07:37] LABS: PHOSPHATIDYLSERINE AB IGA <20 U/mL (<20); PHOSPHATIDYLSERINE AB IGM <25 U/mL (<25)
--- NOTE | 2017-06-29 13:36 | PN ---
SUBJECTIVE: The patient denies any dizziness, headache, nausea, or vomiting. The patient is being attended by the son at the bedside. The patient was fully alert, awake, oriented and is in a good spirit and is ready for discharge. PHYSICAL EXAMINATION VITAL SIGNS: Blood pressure 110/69, heart rate 90, temperature 98.1, and respirations 20. LABORATORY DATA: Hemoglobin and hematocrit 9.3 and 29.1. White count and platelet count are within normal limits. Today SMA-7 are within normal limits. ASSESSMENT AND PLAN: 1. Status post multiple embolic cerebrovascular accidents, the primary source is most likely the recent clot in the [place]. 2. Status post recent leaking cerebral aneurysm. RECOMMENDATIONS: The patient will be discharged on Coumadin therapy and will be followed up by the medical team as well as a neurologist for future INR. Lamin Gutierrez MD
== END 2017-06-26 14:58 | disposition home health service (06) | DRG 14 ==
LOC: ED 22:39 → ERH 06-21 01:56 → 2RNO 06-21 02:51 → OBSVTOIN 06-22 12:45
PROVIDERS: ADMIT Internal Medicine; ATTEND Internal Medicine
PROC: 30233N1 Transfusion of Nonautologous Red Blood Cells into Peripheral Vein, Percutaneous Approach (ICD-10-PCS; principal; 2017-06-25)
PROC: 30233N1 Transfusion of Nonautologous Red Blood Cells into Peripheral Vein, Percutaneous Approach (ICD-10-PCS; 2017-06-25)
DX: I63.40 Cerebral infarction due to embolism of unspecified cerebral artery (principal); G93.40 Encephalopathy, unspecified; D53.1 Other megaloblastic anemias, not elsewhere classified; N39.0 Urinary tract infection, site not specified; E53.8 Deficiency of other specified B group vitamins; G43.119 Migraine with aura, intractable, without status migrainosus; I10 Essential (primary) hypertension; K59.00 Constipation, unspecified; E78.5 Hyperlipidemia, unspecified; M51.9 Unspecified thoracic, thoracolumbar and lumbosacral intervertebral disc disorder; R29.810 Facial weakness; Z79.82 Long term (current) use of aspirin; Z87.891 Personal history of nicotine dependence

== ENCOUNTER 2018-06-14 00:05 | Emergency (ER) | payer MEDICAID ==
[2018-06-14 00:05] VITALS: BMI 22.8
[2018-06-14 00:17] VITALS: RESP 18; TEMP 98.2
--- NOTE | 2018-06-14 00:26 | ED PDOC ---
Arrival/HPI - General Chief Complaint: Headache Time Seen by Provider: 06/14/18 00:08 Historian: Patient - History of Present Illness Narrative History of Present Illness (Text): 06/14/18 00:26 Deena Arredondo is a 47 year old, whose past medical history includes cerebral aneurysm status post repair and hypertension, who presents to the Emergency department complaining of headache. Son states patient has a history of frequent headaches and is complaining of headache tonight following an argument yesterday. Patient reports associated nausea. Patient states 4 tablets of Advil with no significant relief. Patient denies any fever, chills, chest pain, shortness of breath, vomiting, diarrhea, urinary symptoms, back pain, neck pain , dizziness, or any other complaints. Symptom Onset: Gradual Symptom Course: Unchanged Activities at Onset: Light Context: Home Past Medical History - Provider Review Nursing Documentation Reviewed: Yes - Infectious Disease Hx of Infectious Diseases: None - Tetanus Immunization Tetanus Immunization: Unknown - Cardiac Hx Cardiac Disorders: Yes Hx Hypertension: Yes - Pulmonary Hx Respiratory Disorders: No - Neurological Other/Comment: Aneurysm with coiling - HEENT Hx HEENT Disorder: No - Renal Hx Renal Disorder: No - Endocrine/Metabolic Hx Endocrine Disorders: No - Hematological/Oncological Hx Blood Disorders: No - Integumentary Hx Dermatological Disorder: No - Musculoskeletal/Rheumatological Hx Musculoskeletal Disorders: No Hx Falls: No - Gastrointestinal Hx Gastrointestinal Disorders: No - Genitourinary/Gynecological Hx Genitourinary Disorders: No - Psychiatric Hx Depression: No Hx Emotional Abuse: No Hx Physical Abuse: No Hx Substance Use: No - Past Surgical History Past Surgical History: No Previous - Surgical History Other/Comment: Coiled Aneurysm - Anesthesia Hx Anesthesia: Yes Hx Anesthesia Reactions: No Hx Malignant Hyperthermia: No - Suicidal Assessment Feels Threatened In Home Enviroment: No Family/Social History - Physician Review Nursing Documentation Reviewed: Yes Family/Social History: Unknown Family HX Smoking Status: Unknown If Ever Smoked Hx Alcohol Use: No Hx Substance Use: No Hx Substance Use Treatment: No Allergies/Home Meds Allergies/Adverse Reactions: Allergies ampicillin Allergy (Verified 06/20/17 23:08) ANGIOEDEMA shellfish derived Allergy (Verified 06/20/17 23:03) ANAPHYLAXIS Home Medications: Home Meds Medication Instructions Recorded Confirmed Aspirin [Aspirin Chewable] 81 mg PO DAILY 06/20/17 06/20/17 Docusate [Colace] 100 mg PO BID 06/20/17 06/20/17 Ibuprofen [Motrin Ib] 400 mg PO Q4 06/20/17 06/20/17 Nimodipine 30 mg PO Q4 06/20/17 06/20/17 Nitrofurantoin Macrocrystals 100 mg PO Q12 06/20/17 06/20/17 [Macrobid] Review of Systems - Physician Review All systems were reviewed & negative as marked: Yes - Review of Systems Constitutional: Normal. absent: Fevers Eyes: Normal ENT: Normal Respiratory: Normal. absent: SOB, Cough Cardiovascular: Normal. absent: Chest Pain Gastrointestinal: Nausea. absent: Diarrhea, Vomiting Genitourinary Female: Normal. absent: Dysuria, Frequency, Hematuria, Urine Output Changes Musculoskeletal: Normal. absent: Back Pain, Neck Pain Skin: Normal. absent: Rash Neurological: Headache. absent: Dizziness Endocrine: Normal Hemo/Lymphatic: Normal Psychiatric: Normal Physical Exam Vital Signs Reviewed: Yes Vital Signs Temp Pulse Resp BP Pulse Ox 06/14/18 01:00 66 18 165/94 H 98 06/14/18 00:16 98.2 F 103 H 18 159/97 H 97 Temperature: Afebrile Blood Pressure: Hypertensive Pulse: Regular Respiratory Rate: Normal Appearance: Positive for: Well-Appearing, Non-Toxic, Comfortable Pain Distress: None Mental Status: Positive for: Alert and Oriented X 3 - Systems Exam Head: Present: Atraumatic, Normocephalic Pupils: Present: PERRL Extroacular Muscles: Present: EOMI Conjunctiva: Present: Normal Mouth: Present: Moist Mucous Membranes Neck: Present: Normal Range of Motion. No: Meningeal Signs, MIDLINE TENDERNESS , Paraspinal Tenderness Respiratory/Chest: Present: Clear to Auscultation, Good Air Exchange. No: Respiratory Distress, Accessory Muscle Use Cardiovascular: Present: Regular Rate and Rhythm, Normal S1, S2. No: Murmurs Abdomen: No: Tenderness, Distention, Peritoneal Signs Back: Present: Normal Inspection. No: CVA Tenderness, Midline Tenderness, Paraspinal Tenderness Upper Extremity: Present: Normal Inspection. No: Cyanosis, Edema Lower Extremity: Present: Normal Inspection, Capillary Refill < 2 s. No: Edema Neurological: Present: GCS=15, CN II-XII Intact, Speech Normal, Motor Func Grossly Intact, Normal Sensory Function, Normal Cerebellar Funct Skin: Present: Warm, Dry, Normal Color. No: Rashes Psychiatric: Present: Alert, Oriented x 3, Normal Insight, Normal Concentration Medical Decision Making ED Course and Treatment: 06/14/18 00:27 Impression: 47 year old female complaining of headache and nausea. Plan: -- CT Head w/o contrast -- Reglan -- Benadryl -- Reassess and disposition Progress Notes: 06/14/18 02:38 CT Head shows: Brain: Small unchanged regions of chronic infarction in the bilateral chang radiata and left basal ganglia/internal capsule. No hemorrhage. Ventricles: Unremarkable. No ventriculomegaly. Bones/joints: Unremarkable. No acute fracture. Soft tissues: Unremarkable. Vasculature: Aneurysm coils again identified at the level of the left internal carotid artery. Sinuses: Unremarkable as visualized. No acute sinusitis. Mastoid air cells: Unremarkable as visualized. No mastoid effusion. IMPRESSION: 1. No acute intracranial findings. 2. Aneurysm coils again identified at the level of the left internal carotid artery. 3. Small unchanged regions of chronic infarction in the bilateral chang radiata and left basal ganglia/internal capsule. Dictated and Authenticated by: Ladan Ayala MD 06/14/2018 2:16 AM Eastern Time ([place] & [place]) 06/14/18 02:49 Pt with symptomatic relief of symptoms following medication. Patient in agreement with plan to be discharged home. Patient is stable for discharge. Patient was instructed to follow up with physician or return if symptoms worsen or new concerning symptoms arise. - RAD Interpretation Radiology Orders: 06/14/18 00:28 HEAD W/O CONTRAST [CT] Stat Mica Plate Layer Hand: Radiologist - Medication Orders Current Medication Orders: Discontinued Medications Diphenhydramine HCl (Benadryl) 25 mg IVP ONCE ONE Stop: 06/14/18 00:32 Last Admin: 06/14/18 00:59 Dose: 25 mg IVP Administration Document 06/14/18 00:59 JENNIFER (Rec: 06/14/18 00:59 J[place] [id number] Charges for Administration # of IVP Administrations 1 Metoclopramide HCl (Reglan) 10 mg IVP ONCE ONE Stop: 06/14/18 00:32 Last Admin: 06/14/18 00:58 Dose: 10 mg IVP Administration Document 06/14/18 00:58 JENNIFER (Rec: 06/14/18 00:58 JENN[facility] [id number] Charges for Administration # of IVP Administrations 1 - Scribe Statement The provider has reviewed the documentation as recorded by the Lowibwendy Walters Provider Scribe Attestation: All medical record entries made by the Scribe were at my direction and personally dictated by me. I have reviewed the chart and agree that the record accurately reflects my personal performance of the history, physical exam, medical decision making, and the department course for this patient. I have also personally directed, reviewed, and agree with the discharge instructions and disposition. Disposition/Present on Arrival - Present on Arrival Any Indicators Present on Arrival: No History of DVT/PE: No History of Uncontrolled Diabetes: No Urinary Catheter: No History of Decub. Ulcer: No History Surgical Site Infection Following: None - Disposition Have Diagnosis and Disposition been Completed?: Yes Diagnosis: Headache Disposition: HOME/ ROUTINE Disposition Time: 02:47 Patient Plan: Discharge Patient Problems: Current Active Problems Problem Status Onset Headache Acute Condition: GOOD Discharge Instructions (ExitCare): Migraine Headache (DC) Additional Instructions: Follow up with your doctor this week Referrals: Whit Ariza DO [Primary Care Provider] - Follow up with primary Forms: Wishabi (Eth[place]ian)
[2018-06-14] MEDS ORDERED: DiphenhydrAMINE 50 mg/ml Inj IVP ONE (00:31)
[2018-06-14 03:58] VITALS: BP 122/69; PULSE 62; O2SAT 97
--- NOTE | 2018-06-14 07:34 | CT ---
Date of service: 06/14/2018 PROCEDURE: CT HEAD WITHOUT CONTRAST. HISTORY: headache COMPARISON: 06/20/17. TECHNIQUE: Axial computed tomography images were obtained through the head/brain without intravenous contrast. Radiation dose: Total exam DLP = mGy-cm. This CT exam was performed using one or more of the following dose reduction techniques: Automated exposure control, adjustment of the mA and/or kV according to patient size, and/or use of iterative reconstruction technique. FINDINGS: HEMORRHAGE: No intracranial hemorrhage. Aneurysm Clips in the left internal carotid artery, unchanged. BRAIN: No mass effect or edema. No atrophy or chronic microvascular ischemic changes. VENTRICLES: Unremarkable. No hydrocephalus. CALVARIUM: Unremarkable. PARANASAL SINUSES: Unremarkable as visualized. No significant inflammatory changes. MASTOID AIR CELLS: Unremarkable as visualized. No inflammatory changes. OTHER FINDINGS: None. IMPRESSION: No bleed..
== END 2018-06-14 03:00 | disposition home or self-care (01) ==
LOC: ED 00:05
DX: R51 Headache (principal)
CPT/HCPCS: 70450; 96374; 96375; 99285; J1200; J2765

== ENCOUNTER 2018-12-23 18:56 | Emergency (ER) | payer MEDICAID | END 2018-12-23 20:35 | disposition home or self-care (01) | LOC: ED 18:56 ==

== ENCOUNTER 2018-12-24 09:36 | Outpatient (CLI) | payer MEDICAID | END 2018-12-24 09:37 | disposition home or self-care (01) | LOC: RAD 09:36 ==

== ENCOUNTER 2019-03-05 12:53 | Emergency (ER) | payer MEDICAID ==
[2019-03-05 12:54] VITALS: BMI 24.5
[2019-03-05 13:12] VITALS: RESP 18; TEMP 98.1
--- NOTE | 2019-03-05 13:44 | ED PDOC ---
Arrival/HPI - General Chief Complaint: Female Genitourinary Time Seen by Provider: 03/05/19 12:59 Historian: Patient, Pediatric Physical Therapist - History of Present Illness Narrative History of Present Illness (Text): 03/05/19 13:44 48 year old female, with past medical history of HTN, brain aneurysm (s/p coiling), ampicillin allergy, and cone biopsy on 02/23/19 presents to emergency department for lower abdominal pain and vaginal bleeding since earlier today. She states that [employer]ER told her to see a doctor if she experienced any bleeding following the biopsy. Patient reports heavy bleeding that started this morning and describes it as an "explosion." She notes having used 3 pads already. Patient denies any blood clots. Patient also denies any chest pain, shortness of breath, headache, dizziness, or any other somatic complaints. No bleeding in previous 10 days. Last menstrual period 10 years ago. [employer] OFFICER: Dr.Jeremy Pedroza Time/Duration: Other (today) Symptom Onset: Gradual Symptom Course: Unchanged Activities at Onset: Light Context: Home Past Medical History - Provider Review Nursing Documentation Reviewed: Yes - Infectious Disease Hx of Infectious Diseases: None - Tetanus Immunization Tetanus Immunization: Unknown - Cardiac Hx Cardiac Disorders: Yes Hx Hypertension: Yes - Pulmonary Hx Respiratory Disorders: No - Neurological Other/Comment: Aneurysm with coiling - HEENT Hx HEENT Disorder: No - Renal Hx Renal Disorder: No - Endocrine/Metabolic Hx Endocrine Disorders: No - Hematological/Oncological Hx Blood Disorders: No - Integumentary Hx Dermatological Disorder: No - Musculoskeletal/Rheumatological Hx Musculoskeletal Disorders: No Hx Falls: No - Gastrointestinal Hx Gastrointestinal Disorders: No - Genitourinary/Gynecological Hx Genitourinary Disorders: No - Psychiatric Hx Depression: No Hx Emotional Abuse: No Hx Physical Abuse: No Hx Substance Use: No - Past Surgical History Past Surgical History: No Previous - Surgical History Other/Comment: Coiled Aneurysm - Anesthesia Hx Anesthesia: Yes Hx Anesthesia Reactions: No Hx Malignant Hyperthermia: No - Suicidal Assessment Feels Threatened In Home Enviroment: No Family/Social History - Physician Review Nursing Documentation Reviewed: Yes Family/Social History: Unknown Family HX Smoking Status: Unknown If Ever Smoked Hx Alcohol Use: No Hx Substance Use: No Hx Substance Use Treatment: No Allergies/Home Meds Allergies/Adverse Reactions: Allergies ampicillin Allergy (Verified 06/20/17 23:08) ANGIOEDEMA shellfish derived Allergy (Verified 06/20/17 23:03) ANAPHYLAXIS Home Medications: Home Meds Medication Instructions Recorded Confirmed Aspirin [Aspirin Chewable] 81 mg PO DAILY 06/20/17 06/20/17 Docusate [Colace] 100 mg PO BID 06/20/17 06/20/17 Ibuprofen [Motrin Ib] 400 mg PO Q4 06/20/17 06/20/17 Nimodipine 30 mg PO Q4 06/20/17 06/20/17 Nitrofurantoin Macrocrystals 100 mg PO Q12 06/20/17 06/20/17 [Macrobid] Review of Systems - Physician Review All systems were reviewed & negative as marked: Yes - Review of Systems Respiratory: absent: SOB Cardiovascular: absent: Chest Pain Gastrointestinal: Abdominal Pain Genitourinary Female: Vaginal Bleeding (no blood clots ) Physical Exam - Physical Exam Narrative Physical Exam (Text): 03/05/19 13:55 Constitutional: No acute distress. Head: Normocephalic. Atraumatic. Eyes: PERRL. ENT: Moist mucous membranes. Neck: Supple. Cardiovascular: Regular rate. Chest: No tenderness. Respiratory: Clear to auscultation bilaterally. GI: Soft. Nontender. Nondistended. Genitourinary: gross bleeding without clots, cervical tissue abnormality secondary to recent cone biopsy Back: No CVA tenderness. Musculoskeletal: No tenderness or swelling of extremities. Skin: No rash. Neurologic: Alert, no focal deficit. Vital Signs Reviewed: Yes Vital Signs Temp Pulse Resp BP Pulse Ox 03/05/19 12:54 98.1 F 74 18 121/68 97 Temperature: Afebrile Blood Pressure: Normal Pulse: Regular Respiratory Rate: Normal Appearance: Positive for: Well-Appearing, Non-Toxic, Comfortable Pain Distress: None Mental Status: Positive for: Alert and Oriented X 3 Medical Decision Making ED Course and Treatment: 03/05/19 13:56 Impression: 48 year old female presents to emergency department for lower abdominal pain and vaginal bleeding since earlier today following cone biopsy on 02/23/19. Plan: -- Labs -- Urinalysis -- Reassess and disposition Prior Visits: Notes and results from previous visits were reviewed. Progress Notes: 03/05/19 16:56 Patient notes that bleeding has slowed down. 03/05/19 17:18 US Transvaginal, reviewed by radiologist: IMPRESSION: Trace fluid in the endometrial canal. Unremarkable uterus. Unremarkable left adnexa. Limitations of the current examination: Non visible right adnexa. Patient with unremarkable hb. Vitals normal. Patient in ED for 4 hours, states bleeding has slowed. Called covering OBGYN for Dr. Pedroza who states can not see patient due to not affiliated with this hospital. Called OBGYN professor of public administration Dr. Jones who states bleeding not due to recent biopsy as it just started today when biopsy was 10 days ago. He recommends with normal vitals and Hb, discharge and f/u with OBGYN this week. Patient states she can see OBGYN tomorrow in office and feels comfortable to go home. I instructed her to return to ED immediatley for worsening bleeding, dizziness, pain, or any other problem. - Scribe Statement The provider has reviewed the documentation as recorded by the Scribe Gabriela Marley All medical record entries made by the Scribe were at my direction and p ersonally dictated by me. I have reviewed the chart and agree that the record accurately reflects my personal performance of the history, physical exam, medical decision making, and the department course for this patient. I have also personally directed, reviewed, and agree with the discharge instructions and disposition. Disposition/Present on Arrival - Present on Arrival Any Indicators Present on Arrival: No History of DVT/PE: No History of Uncontrolled Diabetes: No Urinary Catheter: No History of Decub. Ulcer: No History Surgical Site Infection Following: None - Disposition Have Diagnosis and Disposition been Completed?: Yes Diagnosis: Vaginal bleeding, abnormal Disposition: HOME/ ROUTINE Disposition Time: 16:40 Patient Plan: Discharge Condition: STABLE Discharge Instructions (ExitCare): Dysfunctional Uterine Bleeding (ED) Referrals: Amparo Pereira [Primary Care Provider] - Follow up with primary Forms: [employer] (Amharic)
[2019-03-05 14:26] LABS: ALB/GLOB RATIO 1.4 (1.1-1.8); ALBUMIN 4.2 g/dL (3.0-4.8); ALT/SGPT 33 U/L (7-56); AST/SGOT 27 U/L (14-36); BASO # 0.02 K/mm3 (0.0-2.0); BASO % 0.2 % (0.0-3.0); BLOOD UREA NITROGEN 15 mg/dL (7-21); CALCIUM 9.3 mg/dL (8.4-10.5); EOS # 0.1 (0.0-0.7); EOS % 0.8 % (1.5-5.0); GFR NON-AFRICAN AMERICAN > 60; HEMOGLOBIN 11.7 g/dL (12.0-16.0); LYMPH # 2.6 (1.2-3.4); LYMPH % 24.7 % (22.0-35.0); MEAN CELL VOLUME 93.8 fl (80.0-105.0); MEAN CORPUSCULAR HEMOGLOBIN 30.3 pg (25.0-35.0); MEAN CORPUSCULAR HGB CONC 32.3 g/dl (31.0-37.0); MONO # 0.6 (0.1-0.6); MONO % 6.1 % (1.0-6.0); RBC 3.86 10^6/uL (3.5-6.1); RED CELL DISTRIBUTION WIDTH 13.2 % (11.5-14.5); WHITE BLOOD COUNT 10.5 10^3/uL (4.5-11.0)
[2019-03-05 14:29] LABS: INR 0.98; PARTIAL THROMBOPLASTIN TIME 32.6 Seconds (26.9-38.3); PROTHROMBIN TIME 10.9 SECONDS (9.4-12.5); URINE BILIRUBIN NEGATIVE (NEGATIVE); URINE BLOOD LARGE (NEGATIVE); URINE GLUCOSE (UA) NEGATIVE (NEGATIVE); URINE LEUKOCYTE ESTERASE LARGE Leu/uL (NEGATIVE); URINE PROTEIN NEGATIVE mg/dL (<30 mg/dL); URINE UROBILINOGEN 0.2 E.U./dL (<1 E.U./dL)
[2019-03-05 14:33] LABS: URINE APPEARANCE SL CLOUDY (CLEAR); URINE COLOR YELLOW (YELLOW)
[2019-03-05 14:34] LABS: HCG,QUALITATIVE URINE NEGATIVE (NEGATIVE)
[2019-03-05 14:40] LABS: URINE BACTERIA FEW /hpf; URINE EPITHELIAL CELLS 0 - 2 /hpf (0-5); URINE RBC TNTC /hpf (0-2)
--- NOTE | 2019-03-05 16:40 | US ---
Date of service: 03/05/2019 HISTORY: s/p cone biopsy 10 days ago, heavy vag bleeding COMPARISON: 01/02/2017. Pelvic ultrasound TECHNIQUE: Transvaginal only. Real -time technique with 2D, duplex and color Doppler FINDINGS: UTERUS: Measures 2.3 x 3.9 x 5.5 cm. Normal in size and appearance. No fibroid or other mass lesion seen. ENDOMETRIUM: Measures 3.4 mm in diameter. Fluid noted in the endometrial canal. CERVIX: No cervical abnormality identified. Closed cervix 3.01 cm. RIGHT OVARY: Not visible. LEFT OVARY: Measures 0.9 x 0.8 x 2.3 cm. No solid mass. Normal flow. FREE FLUID: No significant free fluid noted. OTHER FINDINGS: None. IMPRESSION: Trace fluid in the endometrial canal. Unremarkable uterus. Unremarkable left adnexa. Limitations of the current examination: Non visible right adnexa.
[2019-03-05 17:20] VITALS: BP 127/70; PULSE 70; O2SAT 100
== END 2019-03-05 17:30 | disposition home or self-care (01) ==
LOC: ED 12:53
DX: N93.9 Abnormal uterine and vaginal bleeding, unspecified (principal)